=== PATIENT | female | born 1955 | race Caucasian/White ===

== ENCOUNTER → 2016-11-10 | Outpatient (REF) | payer BC ==
[~2016-11-10] MED LIST: CENTTAB47 PO; CLAR10CA3 PO; FIBECAP2 PO; FLON1SPR; HYDR12.55 PO; MIAC1SPR; OMEP40CA2 PO; ZOCO40TA PO
[2016-11-10 11:50] LABS: MEAN CORPUSCULAR HEMOGLOBIN 30.7 pg (27.0-33.0); MEAN CORPUSCULAR HGB CONC 33.3 g/dl (32.0-36.5); MEAN CORPUSCULAR VOLUME 92.3 fl (80.0-96.0); RED CELL DISTRIBUTION WIDTH 12.3 % (11.5-14.5); WHITE BLOOD COUNT 6.7 K/mm3 (4.0-10.0)
[2016-11-10 12:16] LABS: ALBUMIN 4.4 GM/DL (3.2-5.2); ALBUMIN/GLOBULIN RATIO 1.33 (1.00-1.93); ALKALINE PHOSPHATASE 82 U/L (45-117); ALT/SGPT 41 U/L (12-78); ANION GAP 8 MEQ/L (8-16); AST/SGOT 26 U/L (15-37); BILIRUBIN,TOTAL 0.7 MG/DL (0.2-1.0); BLOOD UREA NITROGEN 15 MG/DL (7-18); CALCIUM LEVEL 9.4 MG/DL (8.5-10.1); CARBON DIOXIDE LEVEL 29 MEQ/L (21-32); CHLORIDE LEVEL 102 MEQ/L (98-107); CHOLESTEROL LEVEL 181 MG/DL (<200); CREATININE FOR GFR 0.75 MG/DL (0.55-1.02); GLOMERULAR FILTRATION RATE > 60.0 (>51); GLUCOSE, FASTING 116 MG/DL (70-105); POTASSIUM SERUM 3.4 MEQ/L (3.5-5.1); SODIUM LEVEL 139 MEQ/L (136-145); TOTAL PROTEIN 7.7 GM/DL (6.4-8.2); TRIGLYCERIDES LEVEL 104 MG/DL (<150)
== END ==
LOC: M SFHCCLAY 08:24
PROVIDERS: ATTEND Nurse Practitioner Family
DX: I10 Essential (primary) hypertension (principal); E78.4 Other hyperlipidemia; E55.9 Vitamin D deficiency, unspecified

== ENCOUNTER → 2016-12-30 | Outpatient (CLI) | payer BC ==
[2016-12-30 09:25] LABS: POTASSIUM SERUM 3.5 MEQ/L (3.5-5.1)
== END ==
LOC: M LAB 07:54
PROVIDERS: ATTEND Nurse Practitioner Family
DX: I10 Essential (primary) hypertension (principal); R73.01 Impaired fasting glucose; E78.4 Other hyperlipidemia; E55.9 Vitamin D deficiency, unspecified

== ENCOUNTER → 2017-05-03 | Outpatient (REF) | payer BC ==
[~2017-05-03] MED LIST changes: -MIAC1SPR; +MIAC200S2
== END ==
LOC: M SFHCCLAY 11:26
PROVIDERS: ATTEND Nurse Practitioner Family
DX: R73.01 Impaired fasting glucose (principal); E78.4 Other hyperlipidemia; E55.9 Vitamin D deficiency, unspecified

== ENCOUNTER → 2017-07-20 | Outpatient (CLI) | payer BC ==
--- NOTE | 2017-07-20 15:19 | REPMRS ---
Patient History The patient states she has not had a clinical breast exam in over a year. Patient is postmenopausal. Family history of ovarian cancer in sister. Benign excisional biopsy of the right breast, 1978. Digital Woman Screen Mammo: July 20, 2017 - Exam #: [id number] Bilateral CC and MLO view(s) were taken. Technologist: Lisa Cintron, Technologist Prior study comparison: April 05, 2016, bilateral digital mammo screening bilat, performed at [facility]. October 29, 2014, digital woman screen mammo performed at [facility]. FINDINGS: There are scattered fibroglandular densities. There has been no change in the appearance of the mammogram from the prior studies. There is a mild amount of residual fibroglandular tissue which is fairly symmetric. There is no interval development of dominant mass, architectural distortion, or clustered microcalcification suggestive of malignancy. ASSESSMENT: BI-RADS/ACR category 1 mammogram. Negative. Recommendation Routine screening mammogram in 1 year (for women over age 40). This mammogram was interpreted with the aid of an FDA-approved computer-aided dectection system. Electronically Signed By: Willi Martin MD 07/20/17 [id number]
--- NOTE | 2017-07-24 09:32 | DEXA ---
AP SPINE L1 - L4 0.996 -1.5 -0.8 LT FEMUR TOTAL 0.924 -0.7 0.3 RT FEMUR TOTAL 0.937 -0.6 0.4 TOTAL BODY TOTAL OTHER COMMENTS: There is low bone density of the spine and hips. The increased density of the spine does represent a significant change. The decreased density of the left hip does represent a significant change. The decreased density of the right hip does not represent a significant change. The density of the spine has decreased 0.6% since the initial exam on 2005. The spine density has increased 2.6% since the most recent exam on 10/29/2014. The density of the left hip has decreased 4.0% since the initial exam on 2005. The density of the left hip has decreased 4.7% since the most recent exam on . The density of the right hip has increased 0.1% since the initial exam on 2005. The density of the right hip has decreased 0.4% since the most recent exam on . FOLLOW-UP: Recommendation for the next bone density exam: 2 years. WANDA
== END ==
LOC: M WHC 14:07
PROVIDERS: ATTEND Nurse Practitioner Family
DX: Z12.31 Encounter for screening mammogram for malignant neoplasm of breast (principal); M81.8 Other osteoporosis without current pathological fracture
CPT/HCPCS: 77080; G0202

== ENCOUNTER → 2017-08-08 | Outpatient (CLI) | payer BC ==
[2017-08-08 07:34] LABS: ESTIMATED AVERAGE GLUCOSE 131 MG/DL (60-110); HEMOGLOBIN A1c 6.2 %
[2017-08-08 07:41] LABS: CHOLESTEROL LEVEL 184 MG/DL (<200); CHOLESTEROL RISK RATIO 2.875 (<5); HDL CHOLESTEROL 64 MG/DL (>40); LDL CHOLESTEROL 101.2 MG/DL (<100); NON-HDL-C 120 MG/DL; TRIGLYCERIDES LEVEL 94 MG/DL (<150)
[2017-08-08 09:48] LABS: TOTAL 25(OH) VITAMIN D 36.5 NG/ML (30.0-100.0)
== END ==
LOC: M LAB 06:13
DX: R73.01 Impaired fasting glucose (principal); E78.4 Other hyperlipidemia; E55.9 Vitamin D deficiency, unspecified
CPT/HCPCS: 83036

== ENCOUNTER → 2017-10-24 | Outpatient (REF) | payer BC ==
[2017-10-24 11:38] LABS: HEMATOCRIT 38.4 % (36.0-47.0); HEMOGLOBIN 13.1 g/dl (12.0-16.0); MEAN CORPUSCULAR HEMOGLOBIN 30.8 pg (27.0-33.0); MEAN CORPUSCULAR HGB CONC 34.1 g/dl (32.0-36.5); MEAN CORPUSCULAR VOLUME 90.4 fl (80.0-96.0); PLATELET COUNT, AUTOMATED 311 10^3/uL (150-450); RED BLOOD COUNT 4.25 10^6/uL (4.00-5.40); RED CELL DISTRIBUTION WIDTH 12.4 % (11.5-14.5); WHITE BLOOD COUNT 9.5 10^3/uL (4.0-10.0)
[2017-10-24 11:57] LABS: ALBUMIN 3.7 GM/DL (3.2-5.2); ALBUMIN/GLOBULIN RATIO 1.23 (1.00-1.93); ALKALINE PHOSPHATASE 63 U/L (45-117); ALT/SGPT 28 U/L (12-78); ANION GAP 10 MEQ/L (8-16); AST/SGOT 18 U/L (7-37); BILIRUBIN,TOTAL 0.4 MG/DL (0.2-1.0); BLOOD UREA NITROGEN 16 MG/DL (7-18); CALCIUM LEVEL 9.2 MG/DL (8.8-10.2); CARBON DIOXIDE LEVEL 28 MEQ/L (21-32); CHLORIDE LEVEL 103 MEQ/L (98-107); CHOLESTEROL LEVEL 182 MG/DL (<200); CHOLESTEROL RISK RATIO 3.433 (<5); CREATININE FOR GFR 0.82 MG/DL (0.55-1.30); GLOMERULAR FILTRATION RATE > 60.0 (>45); GLUCOSE, FASTING 119 MG/DL (70-100); HDL CHOLESTEROL 53 MG/DL (>40); NON-HDL-C 129 MG/DL; POTASSIUM SERUM 3.4 MEQ/L (3.5-5.1); SODIUM LEVEL 141 MEQ/L (136-145); TOTAL PROTEIN 6.7 GM/DL (6.4-8.2); TRIGLYCERIDES LEVEL 170 MG/DL (<150)
[2017-10-24 12:03] LABS: TOTAL 25(OH) VITAMIN D 31.6 NG/ML (30.0-100.0)
[2017-10-24 12:44] LABS: ESTIMATED AVERAGE GLUCOSE 146 MG/DL (60-110); HEMOGLOBIN A1c 6.7 %
== END ==
LOC: M SFHCCLAY 08:22
DX: I10 Essential (primary) hypertension (principal); R73.01 Impaired fasting glucose; E78.4 Other hyperlipidemia; E55.9 Vitamin D deficiency, unspecified
CPT/HCPCS: 80053

== ENCOUNTER 2018-01-11 01:46 | Emergency (ER) | payer BC | END 2018-01-11 06:40 | disposition home or self-care (01) | LOC: M ED 01:46 | DX: L50.0 Allergic urticaria (principal); W57.XXXA Bitten or stung by nonvenomous insect and other nonvenomous arthropods, initial encounter; Y92.9 Unspecified place or not applicable; Y93.9 Activity, unspecified; Y99.9 Unspecified external cause status; I10 Essential (primary) hypertension; K21.9 Gastro-esophageal reflux disease without esophagitis; Z79.899 Other long term (current) drug therapy; Z88.0 Allergy status to penicillin | CPT/HCPCS: 99283 ==

== ENCOUNTER → 2018-02-12 | Outpatient (CLI) | payer BC ==
[2018-02-12 09:02] LABS: CHOLESTEROL LEVEL 193 MG/DL (<200); CHOLESTEROL RISK RATIO 3.015 (<5); HDL CHOLESTEROL 64 MG/DL (>40); NON-HDL-C 129 MG/DL; TRIGLYCERIDES LEVEL 120 MG/DL (<150)
[2018-02-12 09:11] LABS: CREATININE, URINE 86.3 MG/DL; MALB URINE SIEMENS 6.5 MG/L; MAU/CREAT RATIO 7.5 MCG/MG (0.0-30.0)
[2018-02-12 09:29] LABS: ESTIMATED AVERAGE GLUCOSE 140 MG/DL (60-110); HEMOGLOBIN A1c 6.5 %
[2018-02-12 11:01] LABS: TOTAL 25(OH) VITAMIN D 27.3 NG/ML (30.0-100.0)
== END ==
LOC: M LAB 07:54
DX: E11.8 Type 2 diabetes mellitus with unspecified complications (principal)
CPT/HCPCS: 83036

== ENCOUNTER → 2018-05-24 | Outpatient (CLI) | payer BC ==
[2018-05-24 08:37] LABS: CHOLESTEROL LEVEL 166 MG/DL (<200); CHOLESTEROL RISK RATIO 2.912 (<5); HDL CHOLESTEROL 57 MG/DL (>40); LDL CHOLESTEROL 91 MG/DL (<100); NON-HDL-C 109 MG/DL; TRIGLYCERIDES LEVEL 90 MG/DL (<150)
[2018-05-24 11:33] LABS: ESTIMATED AVERAGE GLUCOSE 131 MG/DL (60-110); HEMOGLOBIN A1c 6.2 %
== END ==
LOC: M LAB 07:33
DX: E11.8 Type 2 diabetes mellitus with unspecified complications (principal); E78.2 Mixed hyperlipidemia; E55.9 Vitamin D deficiency, unspecified
CPT/HCPCS: 83036

== ENCOUNTER → 2018-07-12 | Outpatient (CLI) | payer BC ==
[2018-07-12 08:42] LABS: CHOLESTEROL LEVEL 189 MG/DL (<200); CHOLESTEROL RISK RATIO 3.048 (<5); HDL CHOLESTEROL 62 MG/DL (>40); LDL CHOLESTEROL 111 MG/DL (<100); NON-HDL-C 127 MG/DL; TRIGLYCERIDES LEVEL 79 MG/DL (<150)
[2018-07-12 09:19] LABS: TOTAL 25(OH) VITAMIN D 40.2 NG/ML (30.0-100.0)
== END ==
LOC: M LAB 07:33
DX: E55.9 Vitamin D deficiency, unspecified (principal); E78.49 Other hyperlipidemia
CPT/HCPCS: 82306

== ENCOUNTER → 2018-08-29 | Outpatient (REF) | payer BC ==
[~2018-08-29] MED LIST changes: +TRIA1CR80 TOP
[2018-08-29 17:26] LABS: HEMATOCRIT 40.9 % (36.0-47.0); HEMOGLOBIN 13.4 g/dl (12.0-15.5); MEAN CORPUSCULAR HEMOGLOBIN 30.4 pg (27.0-33.0); MEAN CORPUSCULAR HGB CONC 32.8 g/dl (32.0-36.5); MEAN CORPUSCULAR VOLUME 92.7 fl (80.0-96.0); PLATELET COUNT, AUTOMATED 274 10^3/uL (150-450); RED BLOOD COUNT 4.41 10^6/uL (4.00-5.40); WHITE BLOOD COUNT 6.6 10^3/uL (4.0-10.0)
[2018-08-29 17:28] LABS: ALBUMIN 3.8 GM/DL (3.2-5.2); ALT/SGPT 23 U/L (12-78); BILIRUBIN,TOTAL 0.4 MG/DL (0.2-1.0); BLOOD UREA NITROGEN 17 MG/DL (7-18); CALCIUM LEVEL 9.3 MG/DL (8.8-10.2); CARBON DIOXIDE LEVEL 28 MEQ/L (21-32); CHLORIDE LEVEL 104 MEQ/L (98-107); CHOLESTEROL LEVEL 181 MG/DL (<200); CREATININE FOR GFR 0.66 MG/DL (0.55-1.30); GLOMERULAR FILTRATION RATE > 60.0 (>45); GLUCOSE, FASTING 108 MG/DL (70-100); HDL CHOLESTEROL 52 MG/DL (>40); LDL CHOLESTEROL 85 MG/DL (<100); NON-HDL-C 129 MG/DL; POTASSIUM SERUM 3.9 MEQ/L (3.5-5.1); SODIUM LEVEL 140 MEQ/L (136-145); TOTAL 25(OH) VITAMIN D 26.1 NG/ML (30.0-100.0); TOTAL PROTEIN 6.9 GM/DL (6.4-8.2); TRIGLYCERIDES LEVEL 219 MG/DL (<150)
[2018-08-29 17:48] LABS: HEMOGLOBIN A1c 6.9 %
[2018-08-29 17:51] LABS: CREATININE, URINE 29.3 MG/DL; MALB URINE SIEMENS < 5.0 MG/L
== END ==
LOC: M SFHCCLAY 10:38
PROVIDERS: ATTEND Nurse Practitioner Family
DX: I10 Essential (primary) hypertension (principal); E11.8 Type 2 diabetes mellitus with unspecified complications; E78.49 Other hyperlipidemia; E55.9 Vitamin D deficiency, unspecified

== ENCOUNTER → 2018-11-27 | Outpatient (CLI) | payer BC ==
[2018-11-27 08:11] LABS: HEMOGLOBIN 13.2 g/dl (12.0-15.5); MEAN CORPUSCULAR HEMOGLOBIN 29.9 pg (27.0-33.0); MEAN CORPUSCULAR VOLUME 90.7 fl (80.0-96.0); PLATELET COUNT, AUTOMATED 276 10^3/uL (150-450); RED BLOOD COUNT 4.41 10^6/uL (4.00-5.40)
[2018-11-27 08:41] LABS: CREATININE, URINE 49.5 MG/DL; MALB URINE SIEMENS < 5.0 MG/L; MAU/CREAT RATIO 10.1 MCG/MG (0.0-30.0)
[2018-11-27 08:45] LABS: ALBUMIN 4.6 GM/DL (3.2-5.2); ALT/SGPT 19 U/L (12-78); BILIRUBIN,TOTAL 0.5 MG/DL (0.2-1.0); BLOOD UREA NITROGEN 17 MG/DL (7-18); CALCIUM LEVEL 9.8 MG/DL (8.8-10.2); CARBON DIOXIDE LEVEL 29 MEQ/L (21-32); CHLORIDE LEVEL 103 MEQ/L (98-107); CHOLESTEROL LEVEL 174 MG/DL (<200); CHOLESTEROL RISK RATIO 2.949 (<5); CREATININE FOR GFR 0.74 MG/DL (0.55-1.30); GLOMERULAR FILTRATION RATE > 60.0 (>45); GLUCOSE, FASTING 124 MG/DL (70-100); HDL CHOLESTEROL 59 MG/DL (>40); LDL CHOLESTEROL 96 MG/DL (<100); NON-HDL-C 115 MG/DL; POTASSIUM SERUM 3.9 MEQ/L (3.5-5.1); SODIUM LEVEL 139 MEQ/L (136-145); TOTAL PROTEIN 7.4 GM/DL (6.4-8.2); TRIGLYCERIDES LEVEL 95 MG/DL (<150)
[2018-11-27 10:27] LABS: TOTAL 25(OH) VITAMIN D 37.3 NG/ML (30.0-100.0)
[2018-11-27 10:35] LABS: HEMOGLOBIN A1c 6.5 %
== END ==
LOC: M LAB 07:31
PROVIDERS: ATTEND Nurse Practitioner Family
DX: K21.9 Gastro-esophageal reflux disease without esophagitis (principal); I10 Essential (primary) hypertension; E11.8 Type 2 diabetes mellitus with unspecified complications; E55.9 Vitamin D deficiency, unspecified

== ENCOUNTER → 2019-02-14 | Outpatient (CLI) | payer BC ==
[2019-02-14 08:23] LABS: HEMOGLOBIN A1c 6.7 %
== END ==
LOC: M LAB 07:30
PROVIDERS: ATTEND Nurse Practitioner Family
DX: E11.8 Type 2 diabetes mellitus with unspecified complications (principal)

== ENCOUNTER 2019-04-11 18:16 | Inpatient (IN) | payer BC ==
[~2019-04-11] VITALS: Ht 147.3 cm; Wt 56.6 kg
[2019-04-11 19:46] LABS: BASO % 0.4 % (0.0-1.0); EOS # 0.3 10^3/uL (0.0-0.5); EOS % 3.5 % (0.0-3.0); HEMATOCRIT 36.8 % (36.0-47.0); HEMOGLOBIN 12.5 g/dl (12.0-15.5); LYMPH # 2.1 10^3/uL (1.5-5.0); LYMPH % 26.8 % (24.0-44.0); MEAN CORPUSCULAR HEMOGLOBIN 31.3 pg (27.0-33.0); MEAN CORPUSCULAR VOLUME 92.2 fl (80.0-96.0); MONO # 0.6 10^3/uL (0.0-0.8); MONO % 6.9 % (0.0-5.0); NEUTROPHILS # 4.9 10^3/uL (1.5-8.5); NEUTROPHILS % 62.1 % (36.0-66.0); PLATELET COUNT, AUTOMATED 290 10^3/uL (150-450); RED BLOOD COUNT 3.99 10^6/uL (4.00-5.40)
[2019-04-11] MEDS ORDERED: LOSA50TA88 PO (20:08)
[2019-04-11] MEDS ORDERED: META0.52 PO (20:09)
[2019-04-11] MEDS ORDERED: DESL5TAB11 PO (20:10)
[2019-04-11 20:17] LABS: ALBUMIN 3.9 GM/DL (3.2-5.2); ALT/SGPT 20 U/L (12-78); BILIRUBIN,DIRECT < 0.1 MG/DL (0.0-0.2); BILIRUBIN,TOTAL 0.3 MG/DL (0.2-1.0); BLOOD UREA NITROGEN 17 MG/DL (7-18); CALCIUM LEVEL 9.3 MG/DL (8.8-10.2); CARBON DIOXIDE LEVEL 29 MEQ/L (21-32); CHLORIDE LEVEL 108 MEQ/L (98-107); CREATININE FOR GFR 0.74 MG/DL (0.55-1.30); GLOMERULAR FILTRATION RATE > 60.0 (>45); GLUCOSE, FASTING 138 MG/DL (70-100); LIPASE 96 U/L (73-393); POTASSIUM SERUM 3.7 MEQ/L (3.5-5.1); SODIUM LEVEL 143 MEQ/L (136-145); TOTAL PROTEIN 6.7 GM/DL (6.4-8.2)
[2019-04-11] MEDS ORDERED: hydroCHLOROthiazide 12.5 MG CAPSULE PO SCH (21:00)
[2019-04-11] MEDS: HumaLOG INSULIN (NovoLOG) PER UNIT SC SCH (21:00)
[2019-04-11] MEDS ORDERED: LOSARTAN 50 MG TAB PO SCH (21:00)
[2019-04-11] MEDS: METAMUCIL (PSYLLIUM) PACKET PO SCH (21:00)
[2019-04-11] MEDS ORDERED: ISOVUE-370 76% 100ML VIAL (Q9967) As Ordered ONE (21:41)
[2019-04-11 21:56] LABS: BASO % 0.3 % (0.0-1.0); EOS # 0.4 10^3/uL (0.0-0.5); EOS % 4.3 % (0.0-3.0); HEMATOCRIT 33.7 % (36.0-47.0); HEMOGLOBIN 11.5 g/dl (12.0-15.5); LYMPH # 3.2 10^3/uL (1.5-5.0); LYMPH % 35.2 % (24.0-44.0); MEAN CORPUSCULAR HGB CONC 34.1 g/dl (32.0-36.5); MEAN CORPUSCULAR VOLUME 93.9 fl (80.0-96.0); MONO # 0.7 10^3/uL (0.0-0.8); MONO % 7.8 % (0.0-5.0); NEUTROPHILS # 4.7 10^3/uL (1.5-8.5); NEUTROPHILS % 52.1 % (36.0-66.0); PLATELET COUNT, AUTOMATED 278 10^3/uL (150-450); RED BLOOD COUNT 3.59 10^6/uL (4.00-5.40); WHITE BLOOD COUNT 9.1 10^3/uL (4.0-10.0)
--- NOTE | 2019-04-11 22:38 | REPVR ---
EXAM: CT Abdomen and Pelvis With Contrast EXAM DATE/TIME: 04/11/2019 10:12 PM CLINICAL HISTORY: 64 years old, female; Abdominal pain; Generalized; Additional info: Abd pain, gi bleed TECHNIQUE: Imaging protocol: Computed tomography of the abdomen and pelvis with intravenous contrast. Radiation optimization: All CT scans at this facility use at least one of these dose optimization techniques: automated exposure control; mA and/or kV adjustment per patient size (includes targeted exams where dose is matched to clinical indication); or iterative reconstruction. Contrast material: ISOVUE 370; Contrast volume: 100 ml; Contrast route: IV; COMPARISON: No relevant prior studies available. FINDINGS: Lungs: Calcified granuloma left lung base. Mediastinum: A small hiatal hernia is present. Liver: There is a diffuse decrease in hepatic parenchymal density, consistent with fatty infiltration. Subcentimeter cyst left lobe of the liver. Gallbladder and bile ducts: Normal. No calcified stones. No ductal dilation. Pancreas: Normal. No ductal dilation. Spleen: Normal. No splenomegaly. Adrenals: Normal. No mass. Kidneys and ureters: Solid enhancing mass in the upper pole of the left kidney measures 4.9 x 5.1 x 4.2 cm consistent with a renal cell carcinoma. Stomach and bowel: There is increased feces throughout the colon consistent with constipation. Appendix: No evidence of appendicitis. Intraperitoneal space: Unremarkable. No free air. No significant fluid collection. Vasculature: No invasion of the renal vein or inferior vena cava. The aorta demonstrates mild atherosclerotic calcification. Lymph nodes: Unremarkable. No enlarged lymph nodes. Bladder: Unremarkable as visualized. Reproductive: There has been a hysterectomy. Bones/joints: The spine demonstrates mild degenerative changes. Soft tissues: Unremarkable. IMPRESSION: 1. There is a diffuse decrease in hepatic parenchymal density, consistent with fatty infiltration. 2. Small hiatal hernia. 3. Solid enhancing mass in the upper pole of the left kidney measures 4.9 x 5.1 x 4.2 cm consistent with a renal cell carcinoma. 4. There has been a hysterectomy. 5. There is increased feces throughout the colon consistent with constipation. COMMENT: Consistent with the [employer]'s Incidental Findings Committee Report (J Am Mani Radiol 2010): Unless the patient's specific circumstances suggest otherwise, any liver lesion 0.5 cm or less, any cystic kidney lesion less than 1.0 cm, and/or any adrenal lesion 1.0 cm or less not otherwise characterized in this report as possessing suspicious or indeterminate imaging features is/are highly likely to be benign and do not require follow-up imaging or biopsy. Electronically signed by: Toby Roth On 04/11/2019 22:38:29 PM
[2019-04-11 22:54] LABS: INR 0.99; PROTHROMBIN TIME 12.8 SECONDS (11.8-14.0)
[2019-04-11 22:55] LABS: PARTIAL THROMBOPLASTIN TIME 31.6 SECONDS (25.0-38.4)
--- NOTE | 2019-04-11 23:35 | HPEPDOC ---
[facility] Medical History & Physical Date of Admission Apr 11, 2019 Date of Service: Apr 11, 2019 Primary Care Physician: Renae Majano Attending Physician: LAMONTE RAMIREZ MD History and Physical PRIMARY CARE PROVIDER: Renae Majano HAZMAT CD[employer] DRIVER ATTENDING: Dr. Lamonte Ramirez CHIEF COMPLAINT: blood in stool HISTORY OF PRESENT ILLNESS: Patient is a 64 year old female presenting with chief complaint of blood in her stool. She states that beginning the evening of 04/11 she had been feeling weak. She went to the bathroom and had 4-5 bowel movements with cramping abdominal pain with both bright red blood in her stool as well as clots of blood in her stool. During her last bowel movement she bec audra very lightheaded and dizzy and apparently syncopized coming to after a matter of seconds. Workup in the emergency department initially did not reveal any anemia however a repeat CBC done 2 hours later showed a drop in hemoglobin of 1 unit. Upper endoscopy and colonoscopy done by Dr. Melissa in July 2015 was normal. Review of the medical records shows the colonoscopy found perianal skin tags, one diminutive polyp in the sigmoid colon that was resected and found to be consistent with a hyperplastic polyp, mild diverticulosis, and small internal hemorrhoids. While in the emergency department patient also had a CT of her abdomen and pelvis done which did not reveal any obvious source of bleed, but did incidentally find a solid enhancing mass in the upper pole of the left kidney measuring 4.98 x 5.1 x 4.2 cm consistent with a renal cell carcinoma. The patient was informed of the results of these findings. PAST MEDICAL HISTORY: Type 2 diabetes Hypertension Mixed hyperlipidemia GERD Osteoporosis Reactive depression Irritable bowel syndrome PAST SURGICAL HISTORY: Hysterectomy with bilateral salpingo-oophorectomy for uterine fibroids and menorrhagia (2003) 3 Excision of right breast cyst SOCIAL HISTORY: Denies smoking, no alcohol use, no illicit drug use. Lives at home with her . FAMILY HISTORY: Fatherdeceased from COPD Mother-alive One sisterhistory of stroke and later cancer () ALLERGIES: Please see below. REVIEW OF SYSTEMS: GENERAL: Denies fevers, chills, recent unexpected weight change, night sweats, hemoptysis HEENT: Denies headache, dizziness, vision changes, hearing loss, sore throat CARDIOVASCULAR: Denies chest pain, palpitations, orthopnea RESPIRATORY: Denies shortness of breath, wheezing, cough GASTROINTESTINAL: denies nausea, vomiting, abdominal pain, constipation, diarrhea, admits to blood in her stool as per HPI GENITOURINARY: Denies dysuria,urinary urgency, hematuria. MUSCULOSKELETAL: Denies muscle/joint pain, weakness, stiffness NEUROLOGICAL: Denies any numbness/tingling, focal weakness. Admits to single syncopal episode as per HPI HOME MEDICATIONS: Please see below. PHYSICAL EXAMINATION: Vitals: (see below) General: Sad appearing female who appears stated age, no acute distress, laying comfortably in bed. HEENT: Normocephalic, atraumatic. EOMI. No scleral icterus. Moist mucous membranes. No pharyngeal erythema or uvular deviation. Neck: No JVD, lymphadenopathy, or thyromegaly. Cardiac: RRR, Normal S1 and S2, No murmurs, gallops, rubs. Pulm: Clear to auscultation b/l. Symmetric thorax. No wheezing, crackles, rhonchi Abd: Bowel Sounds present. Abdomen is soft, non-tender, non-distended. No g uarding, rebound tenderness, or rigidity. No hepatosplenomegaly. No masses or eccymosis. Ext: No edema or cyanosis Neuro: Alert and oriented, no focal neuro deficits. LABORATORY DATA: See below. IMAGIN04/11/19 CT abdomen/pelvis with IV contrast only: IMPRESSION: 1. There is a diffuse decrease in hepatic parenchymal density, consistent with fatty infiltration. 2. Small hiatal hernia. 3. Solid enhancing mass in the upper pole of the left kidney measures 4.9 x 5.1 x 4.2 cm consistent with a renal cell carcinoma. 4. There has been a hysterectomy. 5. There is increased feces throughout the colon consistent with constipation. MICROBIOLOGY: Please see below. ASSESSMENT/PLAN: #. Symptomatic anemia from Lower GI bleed -Transfusing 2 units of blood, trending CBC every 6 hours. -Dr. Esposito has been made aware of the patient and will see them in the morning. Will run D5 normal saline as patient will be made NPO in case she has an endoscopy on 04/12. -Iron panel ordered as part of anemia work up #. Left renal mass - Dr. Briceno with urology has been consulted for consideration of possible partial nephrectomy during her inpatient stay. We will make him aware in the morning as this is non-emergent. #. Syncopal episode -Telemetry ordered, orthostatics ordered, patient on maintenance fluids. #. Type 2 diabetes -Patient not on home medications, will be placed on sliding scale, consistent carb diet once not nothing by mouth #. Hypertension -Continue home losartan, hydrochlorothiazide #. Hyperlipidemia -Continue statin #. GERD -Continue home omeprazole #. IBS -Continue home Metamucil -DVT prophy: Teds, holding anticoagulation secondary to GI bleed Vital Signs Vital Signs Date Time Temp Pulse Resp B/P (MAP) Pulse Ox O2 Delivery O2 Flow Rate FiO2 04/11/19 23:26 90 18 145/92 (109) 96 Room Air 04/11/19 18:16 98.3 Laboratory Data Labs 24H Laboratory Tests 2 04/11/19 19:36: Immature Granulocyte % (Auto) 0.3, White Blood Count 8.0, Red Blood Count 3.99L, Hemoglobin 12.5, Hematocrit 36.8, Mean Corpuscular Volume 92.2, Mean Corpuscular Hemoglobin 31.3, Mean Corpuscular Hemoglobin Concent 34.0, Red Cell Distribution Width 12.4, Platelet Count 290, Neutrophils (%) (Auto) 62.1, Lymphocytes (%) (Auto) 26.8, Monocytes (%) (Auto) 6.9H, Eosinophils (%) (Auto) 3.5H, Basophils (%) (Auto) 0.4, Neutrophils # (Auto) 4.9, Lymphocytes # (Auto) 2.1, Monocytes # (Auto) 0.6, Eosinophils # (Auto) 0.3, Basophils # (Auto) 0.0, Nucleated Red Blood Cells % (auto) 0.0, Prothrombin Time 12.8, Prothromb Time International Ratio 0.99, Activated Partial Thromboplast Time 31.6, Anion Gap 6L, Glomerular Filtration Rate > 60.0, Calcium Level 9.3, Aspartate Amino Transf (AST/SGOT) 12, Alanine Aminotransferase (ALT/SGPT) 20, Alkaline Phosphatase 70, Total Bilirubin 0.3, Direct Bilirubin < 0.1, Total Protein 6.7, Albumin 3.9, Albumin/Globulin Ratio 1.39, Lipase 96 04/11/19 19:47: Urine Color YELLOW, Urine Appearance CLEAR, Urine pH 5.0, Urine Specific [place] 1.031, Urine Protein NEGATIVE, Urine Glucose (UA) NEGATIVE, Urine Ketones TRAC EH, Urine Blood NEGATIVE, Urine Nitrite NEGATIVE, Urine Bilirubin NEGATIVE, Urine Urobilinogen 0.2, Urine Leukocyte Esterase NEGATIVE, Urine WBC (Auto) 1, Urine RBC (Auto) 2, Urine Hyaline Casts (Auto) 0, Urine Bacteria (Auto) NEGATIVE, Urine Squamous Epithelial Cells 2, Urine Amorphous Sediment SMALLH, Urine Mucus (Auto) MODERATE, Urine Sperm (Auto) 04/11/19 21:48: Immature Granulocyte % (Auto) 0.3, White Blood Count 9.1, Red Blood Count 3.59L, Hemoglobin 11.5L, Hematocrit 33.7L, Mean Corpuscular Volume 93.9, Mean Corpuscular Hemoglobin 32.0, Mean Corpuscular Hemoglobin Concent 34.1, Red Cell Distribution Width 12.5, Platelet Count 278, Neutrophils (%) (Auto) 52.1, Lymp hocytes (%) (Auto) 35.2, Monocytes (%) (Auto) 7.8H, Eosinophils (%) (Auto) 4.3H, Basophils (%) (Auto) 0.3, Neutrophils # (Auto) 4.7, Lymphocytes # (Auto) 3.2, Monocytes # (Auto) 0.7, Eosinophils # (Auto) 0.4, Basophils # (Auto) 0.0, Nucleated Red Blood Cells % (auto) 0.0 CBC/BMP Laboratory Tests 04/11/19 19:36 Red Blood Count 3.99 L, Mean Corpuscular Volume 92.2, Mean Corpuscular Hemoglobin 31.3, Mean Corpuscular Hemoglobin Concent 34.0, Red Cell Distribution Width 12.4, Neutrophils (%) (Auto) 62.1, Lymphocytes (%) (Auto) 26.8, Monocytes (%) (Auto) 6.9 H, Eosinophils (%) (Auto) 3.5 H, Basophils (%) (Auto) 0.4, Neutrophils # (Auto) 4.9, Lymphocytes # (Auto) 2.1, Monocytes # (Auto) 0.6, Eosinophils # (Auto) 0.3, Basophils # (Auto) 0.0 04/11/19 21:48 Red Blood Count 3.59 L, Mean Corpuscular Volume 93.9, Mean Corpuscular Hemoglobin 32.0, Mean Corpuscular Hemoglobin Concent 34.1, Red Cell Distribution Width 12.5, Neutrophils (%) (Auto) 52.1, Lymphocytes (%) (Auto) 35.2, Monocytes (%) (Auto) 7.8 H, Eosinophils (%) (Auto) 4.3 H, Basophils (%) (Auto) 0.3, Neutrophils # (Auto) 4.7, Lymphocytes # (Auto) 3.2, Monocytes # (Auto) 0.7, Eosinophils # (Auto) 0.4, Basophils # (Auto) 0.0 Microbiology Microbiology 04/11/19 Gastrointestinal Tract Panel (PCR) - Final, Complete Home Medications Scheduled Desloratadine (Desloratadine) 5 Mg Tab.rapdis, 5 MG PO QHS Losartan Potassium (Losartan Potassium) 50 Mg Tablet, 50 MG PO QHS Multivitamin/Iron/Folic Acid (Centrum Adults Tablet) 1 Each Tablet, 1 TAB PO QHS Omeprazole (Omeprazole) 40 Mg Cap, 40 MG PO QHS Psyllium Husk (Metamucil) 660 Gm Powder, 1 PKT PO QHS Simvastatin (Zocor) 40 Mg Tab, 40 MG PO QHS Allergies Coded Allergies: Penicillins (Verified Allergy, Intermediate, RASH, 04/11/19) A-FIB/CHADSVASC A-FIB History Current/History of A-Fib/PAF?: No GME ATTESTATION GME ATTESTATION My faculty preceptor for this patient encounter was physically present during the encounter and was fully available. All aspects of the patient interview, examination, medical decision making process, and medical care plan development were reviewed and approved by the faculty preceptor. The faculty preceptor is aware and concurs with the plan as stated in the body of this note and will attest to such by his/her cosignature. ATTENDING NOTE I personally examined this patient at 11:40PM and discussed the case with . is a 64 yr old F w a PMH of HTN who came in for evaluation of blood in her stools; her only other c/o is of weakness which she attributes to working 2 jobs. Per d/w the ED Attending she had a syncopal episode in the ED. Her physical exam is generally unremarkable. She will be admitted for management of Acute Blood Loss Anemia 2/2 LGIB & Newly Diagnosed Right Sided Renal Cell Rest per 's note. LE RUIZ DO Apr 11, 2019 23:35 LAMONTE RAMIREZ MD Apr 11, 2019 23:54
[2019-04-12] VITALS (9 sets, daily range): BP systolic 106–138; BP diastolic 57–83
[2019-04-12] MEDS ORDERED: GLUCAGON FOR INJ 1 MG VIAL (J1610) SC PRN (00:15)
[2019-04-12] MEDS ORDERED: DEXTROSE 50% 50 ML SYRINGE IV PRN (00:15)
[2019-04-12] MEDS ORDERED: GLUCOSE 4 GM CHEW TABLET PO PRN (00:15)
[2019-04-12] MEDS ORDERED: META58.68 PO (00:18)
[2019-04-12] MEDS ORDERED: HYDR12CA PO (00:18)
[2019-04-12] MEDS ORDERED: MULT1TAB50 PO (00:18)
[2019-04-12 00:31] LABS: HEMATOCRIT 31.3 % (36.0-47.0); HEMOGLOBIN 10.5 g/dl (12.0-15.5); MEAN CORPUSCULAR HEMOGLOBIN 30.6 pg (27.0-33.0); MEAN CORPUSCULAR HGB CONC 33.5 g/dl (32.0-36.5); MEAN CORPUSCULAR VOLUME 91.3 fl (80.0-96.0); PLATELET COUNT, AUTOMATED 259 10^3/uL (150-450); RED BLOOD COUNT 3.43 10^6/uL (4.00-5.40); WHITE BLOOD COUNT 14.6 10^3/uL (4.0-10.0)
[2019-04-12 01:01] LABS: FERRITIN 247 NG/ML (8-252); IRON (FE) 44 UG/DL (50-170); PERCENT SATURATION 14.9 % (13.2-45.0); TOTAL IRON BINDING CAPACITY 296 UG/DL (250-450)
[2019-04-12] MEDS: OMEPRAZOLE 20 MG CAP PO SCH ×2 (02:38→20:40)
[2019-04-12] MEDS: SIMVASTATIN 40 MG TAB PO SCH ×2 (02:42→20:40)
[2019-04-12] MEDS: D5W/0.9% SODIUM CHLORIDE 1,000 ML IV SCH ×2 (02:43→13:22)
[2019-04-12 05:21] LABS: BASO % 0.2 % (0.0-1.0); EOS # 0.1 10^3/uL (0.0-0.5); EOS % 0.8 % (0.0-3.0); HEMATOCRIT 34.2 % (36.0-47.0); HEMOGLOBIN 11.6 g/dl (12.0-15.5); LYMPH # 1.8 10^3/uL (1.5-5.0); LYMPH % 20.2 % (24.0-44.0); MEAN CORPUSCULAR HEMOGLOBIN 31.4 pg (27.0-33.0); MEAN CORPUSCULAR HGB CONC 33.9 g/dl (32.0-36.5); MEAN CORPUSCULAR VOLUME 92.7 fl (80.0-96.0); MONO # 0.5 10^3/uL (0.0-0.8); MONO % 5.7 % (0.0-5.0); NEUTROPHILS # 6.5 10^3/uL (1.5-8.5); NEUTROPHILS % 72.9 % (36.0-66.0); PLATELET COUNT, AUTOMATED 228 10^3/uL (150-450); RED BLOOD COUNT 3.69 10^6/uL (4.00-5.40); WHITE BLOOD COUNT 8.9 10^3/uL (4.0-10.0)
[2019-04-12] MEDS: HumaLOG INSULIN (NovoLOG) PER UNIT SC SCH ×4 (07:30→20:32)
--- NOTE | 2019-04-12 07:44 | CR.PDOC ---
General Date of Consultation: Apr 12, 2019 Consultation REASON FOR CONSULTATION/CHIEF COMPLAINT: Left renal mass. HISTORY OF PRESENT ILLNESS: 64-year-old female who was admitted yesterday for a lower GI bleed and acute blood loss. Patient has required transfusion of 2 units of packed RBCs. Patient underwent a CT scan which was reviewed on today's visit. A 5 cm incidental left renal mass was present in the left upper pole consistent with a renal cell carcinoma. Patient denies any urinary symptoms. She denies hematuria. She denies flank pain. She denies weight loss or bony pain. ALLERGIES: Please see below. HOME MEDICATIONS: Please see below. PAST MEDICAL HISTORY: 1. Diabetes mellitus. 2. Hypertension. 3. GERD 4. IBS PAST SURGICAL HISTORY: 1. Total abdominal hysterectomy and bilateral salpingo-oophorectomy 2. 3 3. Breast biopsy REVIEW OF SYSTEMS: 10 point review of systems was reviewed with the patient and the history and physical and are noncontributory PHYSICAL EXAMINATION: VITAL SIGNS: Please see below. GENERAL APPEARANCE: Awake and alert lying comfortably in bed. HEENT: Negative. RESPIRATORY: No respiratory distress. CARDIOVASCULAR: No peripheral edema. ABDOMEN: Soft nontender with no palpable masses, no CVA tenderness. EXTREMITIES: Full range of motion. NEUROLOGICAL: No focal deficits. LABORATORY DATA: Please see below. ASSESSMENT/PLAN: 1. Patient was found to have a incidental left renal mass which is consistent with a renal cell carcinoma. These findings were discussed with the patient and her . I recommend obtaining a chest x-ray and bone scan to rule out metastatic disease. If negative patient will be a candidate for either a left nephrectomy versus a left partial nephrectomy. Surgery does not need to be preformed on this hospital admission and will be scheduled as an elective procedure following workup of her lower GI bleed. Please schedule an outpatient office visit with Dr. Alvarado following discharge. Vital Signs/I&O Vital Signs Date Time Temp Pulse Resp B/P (MAP) Pulse Ox O2 Delivery O2 Flow Rate FiO2 04/12/19 04:00 97.4 73 18 125/58 (80) 97 04/12/19 00:51 Room Air I&O- Last 24 Hours up to 6 AM 04/12/19 06:00 Intake Total 0 ml Output Total 475 ml Balance -475 ml Laboratory Data Labs 24H Laboratory Tests 2 04/11/19 19:36: Immature Granulocyte % (Auto) 0.3, White Blood Count 8.0, Red Blood Count 3.99L, Hemoglobin 12.5, Hematocrit 36.8, Mean Corpuscular Volume 92.2, Mean Corpuscular Hemoglobin 31.3, Mean Corpuscular Hemoglobin Concent 34.0, Red Cell Distribution Width 12.4, Platelet Count 290, Neutrophils (%) (Auto) 62.1, Lymphocytes (%) (Auto) 26.8, Monocytes (%) (Auto) 6.9H, Eosinophils (%) (Auto) 3.5H, Basophils (%) (Auto) 0.4, Neutrophils # (Auto) 4.9, Lymphocytes # (Auto) 2.1, Monocytes # (Auto) 0.6, Eosinophils # (Auto) 0.3, Basophils # (Auto) 0.0, Nucleated Red Blood Cells % (auto) 0.0, Prothrombin Time 12.8, Prothromb Time International Ratio 0.99, Activated Partial Thromboplast Time 31.6, Anion Gap 6L, Glomerular Filtration Rate > 60.0, Calcium Level 9.3, Iron Level 44L, Total Iron Binding Capacity 296, Transferrin % Saturation 14.9, Ferritin 247, Aspartate Amino Transf (AST/SGOT) 12, Alanine Aminotransferase (ALT/SGPT) 20, Alkaline Phosphatase 70, Total Bilirubin 0.3, Direct Bilirubin < 0.1, Total Protein 6.7, Albumin 3.9, Albumin/Globulin Ratio 1.39, Lipase 96 04/11/19 19:47: Urine Color YELLOW, Urine Appearance CLEAR, Urine pH 5.0, Urine Specific [place] 1.031, Urine Protein NEGATIVE, Urine Glucose (UA) NEGATIVE, Urine Ketones TRACEH, Urine Blood NEGATIVE, Urine Nitrite NEGATIVE, Urine Bilirubin NEGATIVE, Urine Urobilinogen 0.2, Urine Leukocyte Esterase NEGATIVE, Urine WBC (Auto) 1, Urine RBC (Auto) 2, Urine Hyaline Casts (Auto) 0, Urine Bacteria (Auto) NEGATIVE, Urine Squamous Epithelial Cells 2, Urine Amorphous Sediment SMALLH, Urine Mucus (Auto) MODERATE, Urine Sperm (Auto) 04/11/19 21:48: Immature Granulocyte % (Auto) 0.3, White Blood Count 9.1, Red Blood Count 3.59L, Hemoglobin 11.5L, Hematocrit 33.7L, Mean Corpuscular Volume 93.9, Mean Corpuscular Hemoglobin 32.0, Mean Corpuscular Hemoglobin Concent 34.1, Red Cell Distribution Width 12.5, Platelet Count 278, Neutrophils (%) (Auto) 52.1, Lymphocytes (%) (Auto) 35.2, Monocytes (%) (Auto) 7.8H, Eosinophils (%) (Auto) 4.3H, Basophils (%) (Auto) 0.3, Neutrophils # (Auto) 4.7, Lymphocytes # (Auto) 3.2, Monocytes # (Auto) 0.7, Eosinophils # (Auto) 0.4, Basophils # (Auto) 0.0, Nucleated Red Blood Cells % (auto) 0.0 04/12/19 00:17: Nucleated Red Blood Cells % (auto) 0.0, Reticulocyte # (auto) 69.8, Percent Reticulocyte Count 2.0H, Reticulocyte Hemoglobin Equivalent 35.6 04/12/19 00:22: 04/12/19 01:46: Bedside Glucose (Misc Panel) 155H 04/12/19 04:59: Immature Granulocyte % (Auto) 0.2, White Blood Count 8.9, Red Blood Count 3.69L, Hemoglobin 11.6L, Hematocrit 34.2L, Mean Corpuscular Volume 92.7, Mean Corpuscular Hemoglobin 31.4, Mean Corpuscular Hemoglobin Concent 33.9, Red Cell Distribution Width 13.1, Platelet Count 228, Neutrophils (%) (Auto) 72.9H, Lymphocytes (%) (Auto) 20.2L, Monocytes (%) (Auto) 5.7H, Eosinophils (%) (Auto) 0.8, Basophils (%) (Auto) 0.2, Neutrophils # (Auto) 6.5, Lymphocytes # (Auto) 1.8, Monocytes # (Auto) 0.5, Eosinophils # (Auto) 0.1, Basophils # (Auto) 0.0, Nucleated Red Blood Cells % (auto) 0.0 CBC/BMP Laboratory Tests 04/11/19 19:36 Red Blood Count 3.99 L, Mean Corpuscular Volume 92.2, Mean Corpuscular Hemoglobin 31.3, Mean Corpuscular Hemoglobin Concent 34.0, Red Cell Distribution Width 12.4, Neutrophils (%) (Auto) 62.1, Lymphocytes (%) (Auto) 26.8, Monocytes (%) (Auto) 6.9 H, Eosinophils (%) (Auto) 3.5 H, Basophils (%) (Auto) 0.4, Neutrophils # (Auto) 4.9, Lymphocytes # (Auto) 2.1, Monocytes # (Auto) 0.6, Eosinophils # (Auto) 0.3, Basophils # (Auto) 0.0 04/11/19 21:48 Red Blood Count 3.59 L, Mean Corpuscular Volume 93.9, Mean Corpuscular Hemoglobin 32.0, Mean Corpuscular Hemoglobin Concent 34.1, Red Cell Distribution Width 12.5, Neutrophils (%) (Auto) 52.1, Lymphocytes (%) (Auto) 35.2, Monocytes (%) (Auto) 7.8 H, Eosinophils (%) (Auto) 4.3 H, Basophils (%) (Auto) 0.3, Neutrophils # (Auto) 4.7, Lymphocytes # (Auto) 3.2, Monocytes # (Auto) 0.7, Eosinophils # (Auto) 0.4, Basophils # (Auto) 0.0 04/12/19 00:17 Red Blood Count 3.43 L, Mean Corpuscular Volume 91.3, Mean Corpuscular Hemoglobin 30.6, Mean Corpuscular Hemoglobin Concent 33.5, Red Cell Distribution Width 12.6 04/12/19 04:59 Red Blood Count 3.69 L, Mean Corpuscular Volume 92.7, Mean Corpuscular Hemoglobin 31.4, Mean Corpuscular Hemoglobin Concent 33.9, Red Cell Distribution Width 13.1, Neutrophils (%) (Auto) 72.9 H, Lymphocytes (%) (Auto) 20.2 L, Monocytes (%) (Auto) 5.7 H, Eosinophils (%) (Auto) 0.8, Basophils (%) (Auto) 0.2, Neutrophils # (Auto) 6.5, Lymphocytes # (Auto) 1.8, Monocytes # (Auto) 0.5, Eosinophils # (Auto) 0.1, Basophils # (Auto) 0.0 Microbiology Microbiology 04/11/19 Gastrointestinal Tract Panel (PCR) - Final, Complete Allergies Coded Allergies: Penicillins (Verified Allergy, Intermediate, RASH, 04/11/19) Home Medications Scheduled Desloratadine (Desloratadine) 5 Mg Tab.rapdis, 5 MG PO QHS, (Reported) Hydrochlorothiazide (Hydrochlorothiazide) 12.5 Mg Capsule, 12.5 MG PO QHS, (Reported) Losartan Potassium (Losartan Potassium) 50 Mg Tablet, 50 MG PO QHS, (Reported) Multivitamin/Iron/Folic Acid (Centrum Adults Tablet) 1 Each Tablet, 1 TAB PO QHS, (Reported) Omeprazole (Omeprazole) 40 Mg Cap, 40 MG PO QHS, (Reported) Psyllium Husk (Metamucil) 660 Gm Powder, 1 PKT PO QHS, (Reported) Simvastatin (Zocor) 40 Mg Tab, 40 MG PO QHS, (Reported) Grabiel Briceno MD Apr 12, 2019 07:44
--- NOTE | 2019-04-12 09:57 | IPNPDOC ---
Subjective Date Seen The patient was seen on 04/12/19. Subjective Chief Complaint/HPI Pt with family at bedside. She states that she is really feeling pretty welll. She no longer has any abd pain, she states that intermittent will feels some bubbling in her belly. She states that her last bloody stools were in the ED yesterday. General: Denies: Fatigue Constitutional: Denies: Chills, Fever ENT: Denies: Head Aches Pulmonary: Denies: Dyspnea, Cough Cardiovascular: Denies: Chest Pain, Palpitations Gastrointestinal: Denies: Nausea, Vomiting, Diarrhea Neurological: Denies: Weakness Psych: Reports: Mood Normal Objective Physical Examination General Exam: Positive: Alert, Cooperative, No Acute Distress ENT Exam: Positive: Mucous membr. moist/pink Neck Exam: Positive: Supple Chest Exam: Positive: Clear to auscultation, Normal air movement Heart Exam: Positive: Rate Normal, Normal S1, Normal S2 Abdomen Exam: Positive: Normal bowel sounds, Soft; Negative: Tenderness Extremity Exam: Negative: Edema Neuro Exam: Positive: Normal Speech Psych Exam: Positive: Mental status NL, Mood NL Assessment /Plan Problems (1) Lower GI bleed Status: Acute Response to Treatment: Stable Problem Specific Plan: Monitor Clinically Problem Text: favor tic bleed Pt has received 2 units pRBCs although her Hgb never dropped below 10.5. This morning she is 11.6, will cont to monitor. She reports no additional bloody stools since admission, although she reports she has mtp in the ED. She is NPO except for sips, IVF running. GS consulted from ED. 07/2015 EGD/colon-2 mm hyperplastic polyp-Reindl No further syncopal symptoms, no head CT done in ED. Tele has been unremarkable. (2) Syncope and collapse Status: Acute Response to Treatment: Stable Problem Text: See above. (3) Acute blood loss anemia Status: Acute Response to Treatment: Stable Problem Text: See above. (4) Renal mass, left Status: Acute Response to Treatment: Stable Problem Specific Plan: Monitor Clinically Problem Text: Pt has been seen by Dr Briceno, recommends outpt mgmt. Pt and family aware. (5) DM2 (diabetes mellitus, type 2) Status: Chronic Response to Treatment: Stable Problem Text: SSI/FSBS. Plan/VTE VTE Prophylaxis Ordered?: No VTE Exclusion Pharmacological: Active Bleeding VS, I&O, 24H, Fishbone Vital Signs/I&O Vital Signs Date Time Temp Pulse Resp B/P (MAP) Pulse Ox O2 Delivery O2 Flow Rate FiO2 04/12/19 08:00 98.9 76 18 128/83 (98) 96 04/12/19 00:51 Room Air I&O- Last 24 Hours up to 6 AM 04/12/19 06:00 Intake Total 762 ml Output Total 995 ml Balance -233 ml Laboratory Data 24H LABS Laboratory Tests 2 04/11/19 19:36: Immature Granulocyte % (Auto) 0.3, White Blood Count 8.0, Red Blood Count 3.99L, Hemoglobin 12.5, Hematocrit 36.8, Mean Corpuscular Volume 92.2, Mean Corpuscular Hemoglobin 31.3, Mean Corpuscular Hemoglobin Concent 34.0, Red Cell Distribution Width 12.4, Platelet Count 290, Neutrophils (%) (Auto) 62.1, Lymphocytes (%) (Auto) 26.8, Monocytes (%) (Auto) 6.9H, Eosinophils (%) (Auto) 3.5H, Basophils (%) (Auto) 0.4, Neutrophils # (Auto) 4.9, Lymphocytes # (Auto) 2.1, Monocytes # (Auto) 0.6, Eosinophils # (Auto) 0.3, Basophils # (Auto) 0.0, Nucleated Red Blood Cells % (auto) 0.0, Prothrombin Time 12.8, Prothromb Time International Ratio 0.99, Activated Partial Thromboplast Time 31.6, Anion Gap 6L, Glomerular Filtration Rate > 60.0, Calcium Level 9.3, Iron Level 44L, Total Iron Binding Capacity 296, Transferrin % Saturation 14.9, Ferritin 247, Aspartate Amino Transf (AST/SGOT) 12, Alanine Aminotransferase (ALT/SGPT) 20, Alkaline Phosphatase 70, Total Bilirubin 0.3, Direct Bilirubin < 0.1, Total Protein 6.7, Albumin 3.9, Albumin/Globulin Ratio 1.39, Lipase 96 04/11/19 19:47: Urine Color YELLOW, Urine Appearance CLEAR, Urine pH 5.0, Urine Specific [place] 1.031, Urine Protein NEGATIVE, Urine Glucose (UA) NEGATIVE, Urine Ketones TRACEH, Urine Blood NEGATIVE, Urine Nitrite NEGATIVE, Urine Bilirubin NEGATIVE, Urine Urobilinogen 0.2, Urine Leukocyte Esterase NEGATIVE, Urine WBC (Auto) 1, Urine RBC (Auto) 2, Urine Hyaline Casts (Auto) 0, Urine Bacteria (Auto) NEGATIVE, Urine Squamous Epithelial Cells 2, Urine Amorphous Sediment SMALLH, Urine Mucus (Auto) MODERATE, Urine Sperm (Auto) 04/11/19 21:48: Immature Granulocyte % (Auto) 0.3, White Blood Count 9.1, Red Blood Count 3.59L, Hemoglobin 11.5L, Hematocrit 33.7L, Mean Corpuscular Volume 93.9, Mean Corpuscular Hemoglobin 32.0, Mean Corpuscular Hemoglobin Concent 34.1, Red Cell Distribution Width 12.5, Platelet Count 278, Neutrophils (%) (Auto) 52.1, Lymphocytes (%) (Auto) 35.2, Monocytes (%) (Auto) 7.8H, Eosinophils (%) (Auto) 4.3H, Basophils (%) (Auto) 0.3, Neutrophils # (Auto) 4.7, Lymphocytes # (Auto) 3.2, Monocytes # (Auto) 0.7, Eosinophils # (Auto) 0.4, Basophils # (Auto) 0.0, Nucleated Red Blood Cells % (auto) 0.0 04/12/19 00:17: Nucleated Red Blood Cells % (auto) 0.0, Reticulocyte # (auto) 69.8, Percent Reticulocyte Count 2.0H, Reticulocyte Hemoglobin Equivalent 35.6 04/12/19 00:22: 04/12/19 01:46: Bedside Glucose (Misc Panel) 155H 04/12/19 04:59: Immature Granulocyte % (Auto) 0.2, White Blood Count 8.9, Red Blood Count 3.69L, Hemoglobin 11.6L, Hematocrit 34.2L, Mean Corpuscular Volume 92.7, Mean Corpuscular Hemoglobin 31.4, Mean Corpuscular Hemoglobin Concent 33.9, Red Cell Distribution Width 13.1, Platelet Count 228, Neutrophils (%) (Auto) 72.9H, Lymphocytes (%) (Auto) 20.2L, Monocytes (%) (Auto) 5.7H, Eosinophils (%) (Auto) 0.8, Basophils (%) (Auto) 0.2, Neutrophils # (Auto) 6.5, Lymphocytes # (Auto) 1.8, Monocytes # (Auto) 0.5, Eosinophils # (Auto) 0.1, Basophils # (Auto) 0.0, Nucleated Red Blood Cells % (auto) 0.0 04/12/19 08:01: Bedside Glucose (Misc Panel) 132H CBC/BMP Laboratory Tests 04/11/19 19:36 Red Blood Count 3.99 L, Mean Corpuscular Volume 92.2, Mean Corpuscular Hemoglobin 31.3, Mean Corpuscular Hemoglobin Concent 34.0, Red Cell Distribution Width 12.4, Neutrophils (%) (Auto) 62.1, Lymphocytes (%) (Auto) 26.8, Monocytes (%) (Auto) 6.9 H, Eosinophils (%) (Auto) 3.5 H, Basophils (%) (Auto) 0.4, Neutrophils # (Auto) 4.9, Lymphocytes # (Auto) 2.1, Monocytes # (Auto) 0.6, Eosinophils # (Auto) 0.3, Basophils # (Auto) 0.0 04/11/19 21:48 Red Blood Count 3.59 L, Mean Corpuscular Volume 93.9, Mean Corpuscular Hemoglobin 32.0, Mean Corpuscular Hemoglobin Concent 34.1, Red Cell Distribution Width 12.5, Neutrophils (%) (Auto) 52.1, Lymphocytes (%) (Auto) 35.2, Monocytes (%) (Auto) 7.8 H, Eosinophils (%) (Auto) 4.3 H, Basophils (%) (Auto) 0.3, Neutrophils # (Auto) 4.7, Lymphocytes # (Auto) 3.2, Monocytes # (Auto) 0.7, Eosinophils # (Auto) 0.4, Basophils # (Auto) 0.0 04/12/19 00:17 Red Blood Count 3.43 L, Mean Corpuscular Volume 91.3, Mean Corpuscular Hemoglobin 30.6, Mean Corpuscular Hemoglobin Concent 33.5, Red Cell Distribution Width 12.6 04/12/19 04:59 Red Blood Count 3.69 L, Mean Corpuscular Volume 92.7, Mean Corpuscular Hemoglobin 31.4, Mean Corpuscular Hemoglobin Concent 33.9, Red Cell Distribution Width 13.1, Neutrophils (%) (Auto) 72.9 H, Lymphocytes (%) (Auto) 20.2 L, Monocytes (%) (Auto) 5.7 H, Eosinophils (%) (Auto) 0.8, Basophils (%) (Auto) 0.2, Neutrophils # (Auto) 6.5, Lymphocytes # (Auto) 1.8, Monocytes # (Auto) 0.5, Eosinophils # (Auto) 0.1, Basophils # (Auto) 0.0 Microbiology Microbiology 04/11/19 Gastrointestinal Tract Panel (PCR) - Final, Complete YNES OLGUIN PA-C Apr 12, 2019 09:57 Bari Zapata M.D. Apr 12, 2019 17:37
[2019-04-12 12:33] LABS: HEMATOCRIT 35.3 % (36.0-47.0); HEMOGLOBIN 11.9 g/dl (12.0-15.5)
--- NOTE | 2019-04-12 17:32 | CR ---
DATE OF CONSULTATION: CHIEF COMPLAINT: Blood in the stool. HISTORY OF PRESENT ILLNESS: The patient is a 64-year-old female, who presents with four to five episodes of bloody bowel movements that started yesterday afternoon. She came into emergency room for evaluation. Her hemoglobin was stable. She did not have any more bowel movements and was plan to be discharged. However, soon after that she stood up had a large bloody bowel movement again, became syncopal and they repeated another complete blood count (CBC) then that showed she had dropped another unit. She was started on blood in the emergency room and admitted to hospital service and I was consulted to evaluate. She has had previous upper and lower endoscopy done by Dr. Pollock in July 2015. She did have some small polyps, as well as mild diverticulosis and internal hemorrhoids. No other complications at that time. She denies any nausea or vomiting. No other blood in her stool prior to this, no other abdominal pains prior to this and no unexplained weight loss. She incidentally does have a large mass on her left kidney that was found during CT scan in the emergency room. She has already been evaluated by urology for that and they are planning outpatient workup and possible surgery in the near future for that. PAST MEDICAL HISTORY: 1. Diabetes. 2. Hypertension. 3. Hyperlipidemia. 4. Gastroesophageal reflux disease. 5. Osteoporosis. 6. Depression. 7. Irritable bowel syndrome. PAST SURGICAL HISTORY: 1. Hysterectomy. 2. 3. Right breast cyst. SOCIAL HISTORY: Denies drug, alcohol, tobacco abuse. FAMILY HISTORY: Noncontributory. ALLERGIES: Penicillin. MEDICATIONS: Please see med rec. REVIEW OF SYSTEMS: Pertinent positives and negatives as stated in history of present illness. PHYSICAL EXAMINATION: GENERAL: Alert and oriented times 3 in no acute stress. VITALS: Temperature 98.9, pulse 76, respirations 18, blood pressure 128/83, pulse oximetry 96% room air. HEENT: Pupils equal round react to light accommodation. HEART: S1, S2 regular rate and rhythm. LUNGS: Clear to auscultation bilaterally. ABDOMEN: Soft, nontender, nondistended. EXTREMITIES: No clubbing, cyanosis or edema. LABORATORY DATA: White count 8.9, hemoglobin is 11.6, platelets 228, potassium 3.7, creatinine 0.74. IMAGING STUDIES: CT abdomen and pelvis from the emergency room shows diffuse decrease in hepatic, parenchymal density consistent with fatty infiltration, small hiatal hernia, solid mass in upper pole left kidney measuring 4.9 x 5.1 x 4.2 cm consistent with renal cell carcinoma, increased feces throughout the colon consistent with constipation. ASSESSMENT/PLAN: 64-year-old female with a history of constipation, irritable bowel syndrome (IBS), presented with multiple bloody bowel movements likely secondary to diverticulosis bleed, less likely secondary to internal hemorrhoids or this renal cell mass. She has not had any bloody bowel movement since the emergency room. She has no other abdominal complaints at this time and her hemoglobin is stable and rising on its own. Plan at this time is for back to regular diet. Continue to monitor her til the morning. As long as she remains stable, she can be discharged home and then recommend outpatient colonoscopy within the next 4-6 weeks. If for some reason her hemoglobin drops and she continues to have bloody bowel movements, then we can reconsider and plan for colonoscopy during this inpatient stay. I have discussed this in detail with her, she understands and is in agreement with the plan.
[2019-04-12 18:16] LABS: HEMATOCRIT 33.7 % (36.0-47.0); HEMOGLOBIN 11.6 g/dl (12.0-15.5)
[2019-04-12] MEDS: METAMUCIL (PSYLLIUM) PACKET PO SCH (20:31)
[2019-04-13 00:30] LABS: HEMATOCRIT 30.2 % (36.0-47.0); HEMOGLOBIN 10.2 g/dl (12.0-15.5)
[2019-04-13] MEDS: D5W/0.9% SODIUM CHLORIDE 1,000 ML IV SCH (02:09)
[2019-04-13 04:00] VITALS: BP 130/69
[2019-04-13 06:20] LABS: HEMATOCRIT 30.1 % (36.0-47.0); HEMOGLOBIN 9.9 g/dl (12.0-15.5); MEAN CORPUSCULAR HEMOGLOBIN 30.6 pg (27.0-33.0); MEAN CORPUSCULAR HGB CONC 32.9 g/dl (32.0-36.5); MEAN CORPUSCULAR VOLUME 92.9 fl (80.0-96.0); PLATELET COUNT, AUTOMATED 183 10^3/uL (150-450); RED BLOOD COUNT 3.24 10^6/uL (4.00-5.40)
[2019-04-13 06:34] LABS: BLOOD UREA NITROGEN 16 MG/DL (7-18); CARBON DIOXIDE LEVEL 25 MEQ/L (21-32); CHLORIDE LEVEL 115 MEQ/L (98-107); CREATININE FOR GFR 0.61 MG/DL (0.55-1.30); GLOMERULAR FILTRATION RATE > 60.0 (>45); GLUCOSE, FASTING 135 MG/DL (70-100); POTASSIUM SERUM 3.5 MEQ/L (3.5-5.1); SODIUM LEVEL 145 MEQ/L (136-145)
[2019-04-13] MEDS: HumaLOG INSULIN (NovoLOG) PER UNIT SC SCH ×4 (07:30→21:00)
[2019-04-13 08:00] VITALS: BP 137/65
[2019-04-13 12:00] VITALS: BP 136/75
[2019-04-13 12:03] LABS: HEMATOCRIT 31.3 % (36.0-47.0); HEMOGLOBIN 10.8 g/dl (12.0-15.5)
[2019-04-13 16:00] VITALS: BP 135/77
[2019-04-13 16:21] LABS: HEMOGLOBIN 10.1 g/dl (12.0-15.5); MEAN CORPUSCULAR HEMOGLOBIN 30.6 pg (27.0-33.0); MEAN CORPUSCULAR HGB CONC 33.7 g/dl (32.0-36.5); MEAN CORPUSCULAR VOLUME 90.9 fl (80.0-96.0); PLATELET COUNT, AUTOMATED 196 10^3/uL (150-450); WHITE BLOOD COUNT 7.1 10^3/uL (4.0-10.0)
--- NOTE | 2019-04-13 16:42 | DSES ---
DATE OF ADMISSION: 04/11/2019 DATE OF DISCHARGE: 04/13/2019 REASON FOR ADMISSION: Ms. Quiros was admitted with rectal bleeding, dark red blood occurred in the toilet bowel, admitted on 04/11/2019. The patient saw Renae Majano NP. She had no abdominal pain. She had 4-5 movements with blood obviously there. She had a syncopal event associated with passage of 405 bowel movements containing blood. CT scan was done of the abdomen and this showed a 4.98 x 5.1 x 4.2 cm left superiorly situated enhancing solid mass consistent with renal cell carcinoma. The patient is aware of the findings. She has a past history of diabetes, type 2 managed with diet alone, gastroesophageal reflux disease (GERD), dyslipidemia, hypertension, and irritable bowel syndrome. She does use fiber everyday. OUTPATIENT MEDICATIONS: Not listed in her admission note but the reconciled medications demonstrate a history of using: - loratadine 5 mg daily - losartan 50 daily - hydrochlorothiazide 12.5 mg daily - omeprazole 40 mg daily - Metamucil one packet daily - simvastatin 40 mg daily HOSPITAL COURSE: The patient received two transfusions, two units of packed cells were given on 04/12/2019. This restored her hemoglobin from 9.9 up to 10.8. She had a hemoglobin of 12.5 on presentation and evidence of gastrointestinal (GI) bleeding. She received a two-unit transfusion on 04/12/2019 as noted. Since then, her hemoglobin has rebounded and actually come up today so that she is 10.8 on the day of discharge. CT showed stool in her colon and no other findings. Presumed diverticular bleed. A colonoscopy was [place] in [address] Pollock that did demonstrate some diverticulosis, not extensive or severe by his description, however, and at this time, her hemoglobin seems to be stable. She has no evidence of active bleeding. Condition, thereby ready for discharge. Her pressure is satisfactory and she is up and around without symptoms. DISCHARGE DIAGNOSIS: 1. Lower gastrointestinal (GI) bleeding with acute GI blood loss. 2. Anemia secondary to GI blood loss. 3. Diverticulosis. 4. History of hypertension. At the time of discharge, she will resume her usual preadmission medications with the exception of the hydrochlorothiazide will be withheld until her pressure demonstrates requirement for resumption of the thiazide diuretic. She may resume a regular diet with the exception of avoiding roughage. She should use her Metamucil, drink plenty of fluids. Activity as tolerated. She is requesting an immediate note for return to work and considering that she is up and around here without difficulty, I think this is permissible. Notes will be created to that effect using the [facility] system once that system is back online.
[2019-04-13 20:00] VITALS: BP 110/58
[2019-04-13] MEDS: METAMUCIL (PSYLLIUM) PACKET PO SCH (21:00)
[2019-04-13] MEDS: OMEPRAZOLE 20 MG CAP PO SCH (21:14)
[2019-04-13] MEDS: SIMVASTATIN 40 MG TAB PO SCH (21:14)
[2019-04-13 23:59] VITALS: BP 125/63
[2019-04-14 04:00] VITALS: BP 129/60
[2019-04-14 05:44] LABS: HEMATOCRIT 27.8 % (36.0-47.0); HEMOGLOBIN 9.4 g/dl (12.0-15.5); MEAN CORPUSCULAR HEMOGLOBIN 30.5 pg (27.0-33.0); MEAN CORPUSCULAR HGB CONC 33.8 g/dl (32.0-36.5); MEAN CORPUSCULAR VOLUME 90.3 fl (80.0-96.0); PLATELET COUNT, AUTOMATED 192 10^3/uL (150-450); RED BLOOD COUNT 3.08 10^6/uL (4.00-5.40); WHITE BLOOD COUNT 7.3 10^3/uL (4.0-10.0)
[2019-04-14 06:02] LABS: BLOOD UREA NITROGEN 14 MG/DL (7-18); CARBON DIOXIDE LEVEL 26 MEQ/L (21-32); CHLORIDE LEVEL 113 MEQ/L (98-107); GLOMERULAR FILTRATION RATE > 60.0 (>45); GLUCOSE, FASTING 108 MG/DL (70-100); POTASSIUM SERUM 3.7 MEQ/L (3.5-5.1); SODIUM LEVEL 143 MEQ/L (136-145)
[2019-04-14] MEDS: HumaLOG INSULIN (NovoLOG) PER UNIT SC SCH ×4 (07:30→21:00)
[2019-04-14 08:00] VITALS: BP 141/76
[2019-04-14] MEDS ORDERED: SLF 3 ML SYR IV PRN (10:30)
--- NOTE | 2019-04-14 10:42 | IPNPDOC ---
Subjective Date Seen The patient was seen on 04/14/19. Subjective Chief Complaint/HPI bleeding continued and was noticed just before planned discharge yesterday. discharge cancelled, then passed larger amount. no pain, no nausea, no cramps, no fever. Constitutional: Denies: Chills, Fever, Night Sweats ENT: Denies: Head Aches Pulmonary: Denies: Dyspnea, Pleuritic Chest Pain Cardiovascular: Denies: Chest Pain, Orthopnea Gastrointestinal: Denies: Nausea, Abdominal Pain Genitourinary: Denies: Dysuria Neurological: Denies: Weakness Psych: Reports: Mood Normal Objective Physical Examination General Exam: Positive: Alert, Cooperative, No Acute Distress ENT Exam: Positive: Mucous membr. moist/pink Neck Exam: Positive: Supple Chest Exam: Positive: Clear to auscultation, Normal air movement Heart Exam: Positive: Rate Normal, Normal S1, Normal S2 Abdomen Exam: Positive: Normal bowel sounds, Soft; Negative: Tenderness Extremity Exam: Negative: Edema Neuro Exam: Positive: Normal Speech Psych Exam: Positive: Mental status NL, Mood NL Assessment /Plan Problems (1) Lower GI bleed Status: Acute Response to Treatment: Stable Problem Specific Plan: Monitor Clinically Problem Text: 04/14: had been scheduled for discharge with no further bleeding and stable hgb then she reported a small amount of blood in stool, discharge cancelled and then passed larger amount of blood again. Dr. Esposito had indicated plan to arrange colonoscopy if she continued to bleed. Will try to contact Dr. Sy who is food and nutrition professor for weekend to see about trying to arrange. Will start Clear liquid diet but only order bowel prep if she can be confirmed for tomorrow. favor tic bleed Pt has received 2 units pRBCs although her Hgb never dropped below 10.5. This morning she is 11.6, will cont to monitor. She reports no additional bloody stools since admission, although she reports she has mtp in the ED. She is NPO except for sips, IVF running. GS consulted from ED. 07/2015 EGD/colon-2 mm hyperplastic polyp-Reindl No further syncopal symptoms, no head CT done in ED. Tele has been unremarkable. (2) Syncope and collapse Status: Acute Response to Treatment: Stable Problem Text: See above. (3) Acute blood loss anemia Status: Acute Response to Treatment: Stable Problem Text: 04/14: Hgb down since yesterday to 9.4. Will repeat CBC this afternoon. See above. (4) Renal mass, left Status: Acute Response to Treatment: Stable Problem Specific Plan: Monitor Clinically Problem Text: Now states that she would prefer to be seen by Dr. Alvarado and she doesn't know who Dr. Briceno is? Either way, appropriate for her to have consult promptly after discharge with Urology. Pt has been seen by Dr Briceno, recommends outpt mgmt. Pt and family aware. (5) DM2 (diabetes mellitus, type 2) Status: Chronic Response to Treatment: Stable Problem Text: SSI/FSBS. Plan/VTE VTE Prophylaxis Ordered?: No VTE Exclusion Pharmacological: Active Bleeding VS, I&O, 24H, Fishbone Vital Signs/I&O Vital Signs Date Time Temp Pulse Resp B/P (MAP) Pulse Ox O2 Delivery O2 Flow Rate FiO2 04/14/19 08:00 98.9 75 18 141/76 (97) 98 04/12/19 00:51 Room Air I&O- Last 24 Hours up to 6 AM 04/14/19 06:00 Intake Total 1492 ml Output Total 750 ml Balance 742 ml Laboratory Data 24H LABS Laboratory Tests 2 04/13/19 12:08: Bedside Glucose (Misc Panel) 151H 04/13/19 16:03: Nucleated Red Blood Cells % (auto) 0.0 04/13/19 16:33: Bedside Glucose (Misc Panel) 111 04/13/19 21:09: Bedside Glucose (Misc Panel) 113 04/14/19 05:26: Nucleated Red Blood Cells % (auto) 0.0, Anion Gap 4L, Glomerular Filtration Rate > 60.0, Blood Urea Nitrogen 14, Creatinine 0.60, Sodium Level 143, Potassium Level 3.7, Chloride Level 113H, Carbon Dioxide Level 26, Calcium Level 8.0L CBC/BMP Laboratory Tests 04/13/19 11:57 04/13/19 16:03 Red Blood Count 3.30 L, Mean Corpuscular Volume 90.9, Mean Corpuscular Hemoglobin 30.6, Mean Corpuscular Hemoglobin Concent 33.7, Red Cell Distribution Width 13.3 04/14/19 05:26 Red Blood Count 3.08 L, Mean Corpuscular Volume 90.3, Mean Corpuscular Hemoglobin 30.5, Mean Corpuscular Hemoglobin Concent 33.8, Red Cell Distribution Width 13.2, Calcium Level 8.0 L Microbiology Microbiology 04/11/19 Gastrointestinal Tract Panel (PCR) - Final, Complete Berto Yanez MD Apr 14, 2019 10:42
[2019-04-14 12:00] VITALS: BP 130/70
[2019-04-14] MEDS: SLF 3 ML SYR IV SCH ×2 (13:33→21:13)
[2019-04-14 16:00] VITALS: BP 149/76
[2019-04-14 16:32] LABS: HEMATOCRIT 28.6 % (36.0-47.0); HEMOGLOBIN 9.7 g/dl (12.0-15.5); MEAN CORPUSCULAR HEMOGLOBIN 31.2 pg (27.0-33.0); MEAN CORPUSCULAR HGB CONC 33.9 g/dl (32.0-36.5); PLATELET COUNT, AUTOMATED 209 10^3/uL (150-450); RED BLOOD COUNT 3.11 10^6/uL (4.00-5.40); WHITE BLOOD COUNT 8.1 10^3/uL (4.0-10.0)
[2019-04-14] MEDS ORDERED: GOLYTELY SOLN 4000 ML BTL PO ONE (18:00)
[2019-04-14 20:00] VITALS: BP 141/73
[2019-04-14] MEDS: SIMVASTATIN 40 MG TAB PO SCH (21:08)
[2019-04-14] MEDS: OMEPRAZOLE 20 MG CAP PO SCH (21:08)
[2019-04-14] MEDS ORDERED: BISACODYL 5 MG TAB PO ONE (22:00)
[2019-04-14] MEDS ORDERED: ONDANSETRON 4MG/2ML VIAL (J2405) IV PRN (23:30)
[2019-04-15] VITALS (9 sets, daily range): BP systolic 115–173; BP diastolic 56–94
[2019-04-15 05:37] LABS: HEMATOCRIT 25.4 % (36.0-47.0); HEMOGLOBIN 8.6 g/dl (12.0-15.5); MEAN CORPUSCULAR HEMOGLOBIN 31.6 pg (27.0-33.0); MEAN CORPUSCULAR HGB CONC 33.9 g/dl (32.0-36.5); MEAN CORPUSCULAR VOLUME 93.4 fl (80.0-96.0); PLATELET COUNT, AUTOMATED 189 10^3/uL (150-450); RED BLOOD COUNT 2.72 10^6/uL (4.00-5.40); WHITE BLOOD COUNT 7.3 10^3/uL (4.0-10.0)
[2019-04-15] MEDS: SLF 3 ML SYR IV SCH ×3 (05:56→21:00)
[2019-04-15 06:00] LABS: BLOOD UREA NITROGEN 12 MG/DL (7-18); CALCIUM LEVEL 8.5 MG/DL (8.8-10.2); CARBON DIOXIDE LEVEL 27 MEQ/L (21-32); CHLORIDE LEVEL 110 MEQ/L (98-107); CREATININE FOR GFR 0.64 MG/DL (0.55-1.30); GLOMERULAR FILTRATION RATE > 60.0 (>45); GLUCOSE, FASTING 116 MG/DL (70-100); POTASSIUM SERUM 3.5 MEQ/L (3.5-5.1); SODIUM LEVEL 144 MEQ/L (136-145)
[2019-04-15] MEDS: HumaLOG INSULIN (NovoLOG) PER UNIT SC SCH ×4 (07:30→21:00)
--- NOTE | 2019-04-15 07:32 | IPNPDOC ---
Text Note Date of Service The patient was seen on 04/15/19. NOTE To OR for colonoscopy this am. No changes to H+P. consent is signed. Angel Esposito DO VS,Brunilda, I+O VS, Brunilda, I+O Laboratory Tests 04/14/19 15:55 Red Blood Count 3.11 L, Mean Corpuscular Volume 92.0, Mean Corpuscular Hemoglobin 31.2, Mean Corpuscular Hemoglobin Concent 33.9, Red Cell Distribution Width 13.1 04/15/19 05:15 Red Blood Count 2.72 L, Mean Corpuscular Volume 93.4, Mean Corpuscular Hemoglobin 31.6, Mean Corpuscular Hemoglobin Concent 33.9, Red Cell Distribution Width 12.9, Calcium Level 8.5 L Vital Signs Date Time Temp Pulse Resp B/P (MAP) Pulse Ox O2 Delivery O2 Flow Rate FiO2 04/15/19 04:00 97.0 72 18 129/66 (87) 100 04/12/19 00:51 Room Air I&O- Last 24 Hours up to 6 AM 04/15/19 06:00 Intake Total 3080 ml Output Total 1750 ml Balance 1330 ml ROB ESPOSITO DO Apr 15, 2019 07:32
[2019-04-15] MEDS ORDERED: PROPOFOL 200 MG/20 ML VIAL As Ordered ONE ×2 (07:43→07:58)
[2019-04-15] MEDS ORDERED: GLYCOPYRROLATE INJ 0.2 MG/ML 2 ML VIAL As Ordered ONE (07:49)
--- NOTE | 2019-04-15 09:30 | RO ---
DATE OF PROCEDURE: 04/15/2019 PREOPERATIVE DIAGNOSIS: GI bleeding. POSTOPERATIVE DIAGNOSIS: Diverticulosis, internal hemorrhoids and partially poor prep. No sign of any active bleeding or signs of areas that have been bleeding. SURGEON: Dr. Esposito HEATER OPERATOR: None. ANESTHESIA: IV sedation. COMPLICATIONS: None. ESTIMATED BLOOD LOSS: None. INDICATIONS FOR PROCEDURE: Patient is a 64-year-old female with a history of lower GI bleeding. Recommendation was to proceed with colonoscopy. Risks and benefits of the procedure but not limited to but including bleeding, perforation, damage to surrounding structures and need for further surgery discussed in detail with the patient and informed consent was obtained and procedure was planned. PROCEDURE: The patient brought back to operating room four after sufficient sedation. She was placed in the left lateral decubitus position. Next a colonoscope was passed all way to level the cecum. Once the cecum was identified the scope was slowly retracted backwards. There was some very mild diverticulosis identified in the sigmoid colon. No signs of any polyps or masses throughout the entire colon. No signs of any AVN. No diverticulosis. Scope was brought all the way back into the rectum and retroflexed. There were some internal hemorrhoids identified but again no signs of any recent or active bleeding. The scope was then removed. Patient was awakened from anesthesia and sent to postanesthesia care unit in stable condition.
--- NOTE | 2019-04-15 11:43 | IPNPDOC ---
Subjective Date Seen The patient was seen on 04/15/19. Subjective Chief Complaint/HPI Pt this morning doing well. She has undergone colonoscopy this morning. She state no further bleeding with bowel movements since Sat. General: Denies: Fatigue Constitutional: Denies: Chills, Fever Pulmonary: Denies: Dyspnea, Cough Cardiovascular: Denies: Chest Pain, Palpitations Gastrointestinal: Denies: Nausea, Vomiting, Diarrhea Neurological: Denies: Weakness Psych: Reports: Mood Normal Objective Physical Examination General Exam: Positive: Alert, Cooperative, No Acute Distress ENT Exam: Positive: Mucous membr. moist/pink Neck Exam: Positive: Supple Chest Exam: Positive: Clear to auscultation, Normal air movement Heart Exam: Positive: Rate Normal, Normal S1, Normal S2 Abdomen Exam: Positive: Normal bowel sounds, Soft; Negative: Tenderness Extremity Exam: Negative: Edema Neuro Exam: Positive: Normal Speech Psych Exam: Positive: Mental status NL, Mood NL Assessment /Plan Problems (1) Lower GI bleed Status: Acute Response to Treatment: Stable Problem Specific Plan: Monitor Clinically Problem Text: 04/15 Colonnsocopy with mild diverticulosis, hemorrhoids, no signs of bleeding. Hgb dropped overnight, will monitor today, if remains stable plan for d/c in AM. Pt aware. 04/14: had been scheduled for discharge with no further bleeding and stable hgb then she reported a small amount of blood in stool, discharge cancelled and then passed larger amount of blood again. Dr. Esposito had indicated plan to arrange colonoscopy if she continued to bleed. Will try to contact Dr. Sy who is front office help for weekend to see about trying to arrange. Will start Clear liquid diet but only order bowel prep if she can be confirmed for tomorrow. favor tic bleed Pt has received 2 units pRBCs although her Hgb never dropped below 10.5. This morning she is 11.6, will cont to monitor. She reports no additional bloody stools since admission, although she reports she has mtp in the ED. She is NPO except for sips, IVF running. GS consulted from ED. 07/2015 EGD/colon-2 mm hyperplastic polyp-Reindl No further syncopal symptoms, no head CT done in ED. Tele has been unremarkable. (2) Acute blood loss anemia Status: Acute Response to Treatment: Stable Problem Text: 04/15: Hemoglobin drifted down overnight, but is not clear if this is physiologic fluctuation or evidence of continued bleeding. We'll order a midday reevaluation as well as morning labs tomorrow. This should help clarify the trend. 04/14: Hgb down since yesterday to 9.4. Will repeat CBC this afternoon. See above. (3) Renal mass, left Status: Acute Response to Treatment: Stable Problem Specific Plan: Monitor Clinically Problem Text: Now states that she would prefer to be seen by Dr. Alvarado and she doesn't know who Dr. Briceno is? Either way, appropriate for her to have consult promptly after discharge with Urology. Pt has been seen by Dr Briceno, recommends outpt mgmt. Pt and family aware. (4) DM2 (diabetes mellitus, type 2) Status: Chronic Response to Treatment: Stable Problem Text: SSI/FSBS. (5) Syncope and collapse Status: Resolved Response to Treatment: Stable Problem Text: See above. Plan/VTE VTE Prophylaxis Ordered?: No VTE Exclusion Pharmacological: Active Bleeding Plan Family Medicine Attending Note: I saw and examined Ms. Quiros, discussed with Ynes Molina, R-PAC. Agree with her note as documented. The patient has not had further bleeding. Her colonoscopy did not show source of the bleed. I discussed what diverticulosis is and how a nonactive diverticular bleed might not be noted on a colonoscopy. She is willing to stay through tomorrow to verify stability of her hemoglobin. She reports she has to work on Monday and is very interested in being able to do this. We'll monitor carefully. 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, I&O, 24H, Fishbone Vital Signs/I&O Vital Signs Date Time Temp Pulse Resp B/P (MAP) Pulse Ox O2 Delivery O2 Flow Rate FiO2 04/15/19 10:15 96.7 85 18 119/56 (77) 98 04/12/19 00:51 Room Air I&O- Last 24 Hours up to 6 AM 04/15/19 06:00 Intake Total 3080 ml Output Total 1750 ml Balance 1330 ml Laboratory Data 24H LABS Laboratory Tests 2 04/14/19 15:55: Nucleated Red Blood Cells % (auto) 0.0 04/14/19 16:58: Bedside Glucose (Misc Panel) 127H 04/14/19 21:13: Bedside Glucose (Misc Panel) 195H 04/15/19 05:15: Nucleated Red Blood Cells % (auto) 0.0, Anion Gap 7L, Glomerular Filtration Rate > 60.0, Blood Urea Nitrogen 12, Creatinine 0.64, Sodium Level 144, Potassium Level 3.5, Chloride Level 110H, Carbon Dioxide Level 27, Calcium Level 8.5L CBC/BMP Laboratory Tests 04/14/19 15:55 Red Blood Count 3.11 L, Mean Corpuscular Volume 92.0, Mean Corpuscular Hemoglobin 31.2, Mean Corpuscular Hemoglobin Concent 33.9, Red Cell Distribution Width 13.1 04/15/19 05:15 Red Blood Count 2.72 L, Mean Corpuscular Volume 93.4, Mean Corpuscular Hemoglobin 31.6, Mean Corpuscular Hemoglobin Concent 33.9, Red Cell Distribution Width 12.9, Calcium Level 8.5 L Microbiology Microbiology 04/11/19 Gastrointestinal Tract Panel (PCR) - Final, Complete YNES MOLINA PA-C Apr 15, 2019 11:43 Joey Alexis MD Apr 15, 2019 18:23
[2019-04-15 17:21] LABS: HEMATOCRIT 26.7 % (36.0-47.0); HEMOGLOBIN 9.1 g/dl (12.0-15.5)
--- NOTE | 2019-04-15 17:25 | REP ---
Chest x-ray: Two views. History: Left renal mass. Comparison study: July 15, 2012. Findings: The lungs are symmetrically aerated and free of infiltrate. Pleural angles are sharp. Heart is not felt to be enlarged. There are degenerative changes in the thoracic spine. There is a granulomatous calcification projecting in the left base. Impression: No acute disease. Electronically Signed by Tristian Orellana MD 04/15/2019 06:01 P
[2019-04-15] MEDS: OMEPRAZOLE 20 MG CAP PO SCH (21:00)
[2019-04-15] MEDS: SIMVASTATIN 40 MG TAB PO SCH (21:00)
[2019-04-16] VITALS: BP 147/74
[2019-04-16 04:00] VITALS: BP 140/80
[2019-04-16 05:45] LABS: HEMATOCRIT 26.6 % (36.0-47.0); HEMOGLOBIN 8.7 g/dl (12.0-15.5); MEAN CORPUSCULAR HEMOGLOBIN 30.9 pg (27.0-33.0); MEAN CORPUSCULAR HGB CONC 32.7 g/dl (32.0-36.5); MEAN CORPUSCULAR VOLUME 94.3 fl (80.0-96.0); PLATELET COUNT, AUTOMATED 149 10^3/uL (150-450); RED BLOOD COUNT 2.82 10^6/uL (4.00-5.40); WHITE BLOOD COUNT 7.4 10^3/uL (4.0-10.0)
[2019-04-16] MEDS: SLF 3 ML SYR IV SCH (05:50)
[2019-04-16 06:07] LABS: BLOOD UREA NITROGEN 14 MG/DL (7-18); CALCIUM LEVEL 8.4 MG/DL (8.8-10.2); CARBON DIOXIDE LEVEL 23 MEQ/L (21-32); CHLORIDE LEVEL 111 MEQ/L (98-107); CREATININE FOR GFR 0.65 MG/DL (0.55-1.30); GLOMERULAR FILTRATION RATE > 60.0 (>45); GLUCOSE, FASTING 117 MG/DL (70-100); SODIUM LEVEL 143 MEQ/L (136-145)
[2019-04-16] MEDS: HumaLOG INSULIN (NovoLOG) PER UNIT SC SCH (07:30)
[2019-04-16 07:39] VITALS: BP 153/67
== END 2019-04-16 09:43 | disposition home or self-care (01) | DRG 253 ==
LOC: M ED 18:16 → M ED INP 23:28 → M PCU 04-12 01:09
PROVIDERS: ADMIT Internal Medicine; ATTEND Family Medicine
PROC: 30233N1 Transfusion of Nonautologous Red Blood Cells into Peripheral Vein, Percutaneous Approach (ICD-10-PCS; 2019-04-11)
PROC: 0DJD8ZZ Inspection of Lower Intestinal Tract, Via Natural or Artificial Opening Endoscopic (ICD-10-PCS; principal; 2019-04-15 07:30)
DX: K92.2 Gastrointestinal hemorrhage, unspecified (principal); I10 Essential (primary) hypertension; C64.2 Malignant neoplasm of left kidney, except renal pelvis; E11.9 Type 2 diabetes mellitus without complications; D62 Acute posthemorrhagic anemia; K57.30 Diverticulosis of large intestine without perforation or abscess without bleeding; E78.5 Hyperlipidemia, unspecified; K21.9 Gastro-esophageal reflux disease without esophagitis; M81.0 Age-related osteoporosis without current pathological fracture; K58.1 Irritable bowel syndrome with constipation; K64.8 Other hemorrhoids; Z90.710 Acquired absence of both cervix and uterus; R55 Syncope and collapse; Z88.0 Allergy status to penicillin; Z79.899 Other long term (current) drug therapy

== ENCOUNTER → 2019-05-23 | Outpatient (CLI) | payer BC ==
[~2019-05-23] MED LIST changes: +CALC600T60 PO; +DESL5TAB11 PO; +HYDR12CA PO; +LOSA50TA88 PO; +META0.52 PO; +META58.68 PO; +MULT1TAB50 PO; -OMEP40CA2 PO; +OMEP40CA97 PO
[2019-05-23 08:16] LABS: HEMATOCRIT 39.7 % (36.0-47.0); HEMOGLOBIN 12.7 g/dl (12.0-15.5); MEAN CORPUSCULAR HEMOGLOBIN 30.5 pg (27.0-33.0); MEAN CORPUSCULAR VOLUME 95.4 fl (80.0-96.0); PLATELET COUNT, AUTOMATED 300 10^3/uL (150-450); RED BLOOD COUNT 4.16 10^6/uL (4.00-5.40); WHITE BLOOD COUNT 6.7 10^3/uL (4.0-10.0)
[2019-05-23 08:37] LABS: BLOOD UREA NITROGEN 20 MG/DL (7-18); CALCIUM LEVEL 9.5 MG/DL (8.8-10.2); CARBON DIOXIDE LEVEL 26 MEQ/L (21-32); CHLORIDE LEVEL 110 MEQ/L (98-107); CREATININE FOR GFR 0.71 MG/DL (0.55-1.30); GLOMERULAR FILTRATION RATE > 60.0 (>45); GLUCOSE, FASTING 114 MG/DL (70-100); SODIUM LEVEL 143 MEQ/L (136-145)
[2019-05-23 08:38] LABS: INR 0.94; PROTHROMBIN TIME 12.3 SECONDS (11.8-14.0)
[2019-05-23 08:39] LABS: PARTIAL THROMBOPLASTIN TIME 30.8 SECONDS (25.0-38.4)
[2019-05-23 08:42] LABS: APPEARANCE, URINE CLEAR (CLEAR); BACTERIA, URINE AUTO NEGATIVE (NEGATIVE); BILIRUBIN, URINE AUTO NEGATIVE (NEGATIVE); BLOOD, URINE BLOOD NEGATIVE (NEGATIVE); COLOR, URINE YELLOW (YELLOW); GLUCOSE, URINE (UA) AUTO NEGATIVE (NEGATIVE); KETONE, URINE AUTO NEGATIVE (NEGATIVE); LEUKOCYTE ESTERASE, URINE AUTO TRACE (NEGATIVE); MUCUS, URINE SMALL (NEGATIVE); NITRITE, URINE AUTO NEGATIVE (NEGATIVE); PROTEIN, URINE AUTO NEGATIVE (NEGATIVE); RBC, URINE AUTO 3 /HPF (0-3); SPECIFIC GRAVITY URINE AUTO 1.019 (1.002-1.035); SQUAMOUS EPITHELIAL CELL UR AU 0 /HPF (0-6); UROBILINOGEN, URINE AUTO 0.2 mg/dL (0.0-2.0); WBC, URINE AUTO 2 /HPF (0-3)
== END ==
LOC: M LAB 07:20
PROVIDERS: ATTEND Nurse Practitioner Women's Health
DX: Z01.818 Encounter for other preprocedural examination (principal); N28.89 Other specified disorders of kidney and ureter

== ENCOUNTER → 2019-06-03 | Outpatient (REF) | payer BC | LOC: M LABSMT 12:50 | PROVIDERS: ATTEND Nurse Practitioner Women's Health | DX: N28.89 Other specified disorders of kidney and ureter (principal) ==

== ENCOUNTER 2019-06-12 06:05 | Inpatient (IN) | payer BC ==
[~2019-06-12] VITALS: Ht 147.3 cm; Wt 62.1 kg
[2019-06-12] VITALS (9 sets, daily range): BP systolic 115–144; BP diastolic 62–86
[~2019-06-12 06:05] MED LIST changes: +LR 1,000 ML IV ONE; +LevoFLOXacin IV 500 MG in IV 1 EA IV ONE
[2019-06-12] MEDS ORDERED: dexameTHASONE 4 MG/ML 1ML VIAL (J1100) As Ordered ONE (06:47)
[2019-06-12] MEDS ORDERED: ROCURONIUM BROMIDE 50 MG/5 ML VIAL As Ordered ONE ×3 (06:47→10:24)
[2019-06-12] MEDS ORDERED: PROPOFOL 200 MG/20 ML VIAL As Ordered ONE (06:47)
[2019-06-12] MEDS ORDERED: ONDANSETRON 4MG/2ML VIAL (J2405) As Ordered ONE (06:47)
[2019-06-12] MEDS ORDERED: LIDOCAINE 2% INJ 100 MG/5 ML SDV (FOR ANES.) As Ordered ONE (06:47)
[2019-06-12] MEDS ORDERED: HYDROmorphone HCL 2 MG/ML 1ML VIAL (J1170) As Ordered ONE (06:48)
[2019-06-12] MEDS ORDERED: KETAMINE HCL 200 MG/20 ML VIAL As Ordered ONE (06:48)
[2019-06-12] MEDS ORDERED: fentaNYL 250 MCG/5 ML INJECTION (J3010) As Ordered ONE (06:48)
[2019-06-12] MEDS ORDERED: PROPOFOL 500 MG/50 ML VIAL As Ordered ONE (06:48)
[2019-06-12] MEDS ORDERED: LIDOCAINE 1% SDV INJ 30 ML VIAL As Ordered ONE (06:53)
[2019-06-12] MEDS ORDERED: BUPIVACAINE HCL 0.25% 30 ML VIAL As Ordered ONE (06:54)
[2019-06-12] MEDS ORDERED: SUGAMMADEX SODIUM 500 MG/5 ML VIAL (BRIDION) As Ordered ONE (07:01)
[2019-06-12] MEDS ORDERED: MIDAZOLAM INJ 2 MG/2 ML VIAL (J2250) As Ordered ONE (07:32)
[2019-06-12] MEDS ORDERED: ONDANSETRON 4MG/2ML VIAL (J2405) IV PRN ×2 (07:45→13:15)
[2019-06-12] MEDS ORDERED: PERCOCET 5MG/325MG TAB PO PRN (07:45)
[2019-06-12] MEDS ORDERED: MANNITOL 25% 12.5 GM/50 ML VIAL (J2150) As Ordered ONE (08:37)
[2019-06-12] MEDS ORDERED: ACETAMINOPHEN 1000MG 100ML IV BTL (OFIRMEV) (J0131 PER 10MG) As Ordered ONE ×2 (09:31→14:44)
[2019-06-12] MEDS ORDERED: METOCLOPRAMIDE INJ 10MG/2ML VIAL (J2765) IV PRN (13:15)
[2019-06-12] MEDS ORDERED: LR 1,000 ML IV SCH (13:15)
[2019-06-12] MEDS ORDERED: fentaNYL 100 MCG/2 ML INJECTION (J3010) IV PRN (13:15)
[2019-06-12] MEDS ORDERED: oxyCODONE 5MG TAB PO PRN (13:15)
[2019-06-12] MEDS ORDERED: HYDROMORPHONE HCL 0.5 MG/ 0.5 ML SYRINGE (J1170 PER 1) IV PRN (13:15)
[2019-06-12 13:22] LABS: HEMATOCRIT 36.9 % (36.0-47.0); MEAN CORPUSCULAR HEMOGLOBIN 30.1 pg (27.0-33.0); MEAN CORPUSCULAR HGB CONC 32.5 g/dl (32.0-36.5); MEAN CORPUSCULAR VOLUME 92.5 fl (80.0-96.0); PLATELET COUNT, AUTOMATED 269 10^3/uL (150-450); RED BLOOD COUNT 3.99 10^6/uL (4.00-5.40); WHITE BLOOD COUNT 13.7 10^3/uL (4.0-10.0)
--- NOTE | 2019-06-12 13:34 | ROOPDOC ---
[facility] Report Of Operation Report of Operation DATE OF PROCEDURE: 06/12/19 PREPROCEDURE DIAGNOSIS: Left renal neoplasm. POSTPROCEDURE DIAGNOSIS: Left renal neoplasm. PROCEDURE: Left robotic-assisted laparoscopic partial nephrectomy with intraoperative ultrasound for tumor mapping. SURGEON: Barrera Perez MD MANNEQUIN WIG MAKER: Wanda Devi ANESTHESIA: General OPERATIVE INDICATIONS: This is a 64 year old female recently found to have an approximately 5cm enhancing mass on her left kidney. She was brought to the operating room today for treatment. DESCRIPTION OF PROCEDURE: The patient was brought to the operating room where general anesthesia was induced. Prophylactic antibiotics were infused. A Cowart catheter was inserted into the bladder under sterile conditions and the balloon was filled with sterile water. She was then placed in the right lateral decubitus position. All pressure points were appropriately padded and an axillary roll was placed. We then secured the patient to the table with tape. Her abdomen was then prepped and draped in the usual sterile fashion. Next, an 8mm incision was made in line with the 11th rib along the lateral border of the rectus. Pneumoperitoneum was achieved with a Veress needle. Next, an 8mm port was placed for the camera. At this point, the left robotic port was placed off the costal margin. Two right hand robotic ports were then placed with one between the anterior superior iliac spine and the hip and the other one just caudal to the camera port. Last the 12 mm library clerical assistant port was placed inferior and medial to the camera port. The robot was then docked. The spleen was then dissected off of Gerota's fascia. Next the left colon was dissected off of Gerota's fascia. At this point the left gonadal vein was identified and it was traced cephalad to its insertion into the left renal vein. This was carefully dissected and just inferior to the renal vein, the left renal artery was identified. This was also carefully dissected. Next I had our children's institution attendant administer 12.5g of mannitol. Gerota's fascia was then opened and I defatted the kidney. On the posterior and superior aspect of the kidney the tumor was seen. Ultrasound was then utilized to yusra the boundaries of the mass. Next 2 bulldog clamps were placed on the renal artery and we began resecting the mass. The mass was resected completely and it appeared that we had a good margin. Once the mass was removed, the renorrhaphy was performed first by ligating all vessels in the base of resection with a 2-0 vicryl suture using figure of eight stitches. The capsule of the kidney was then reapproximated using 0-vicryl suture with Weck clips to cinch down the suture. Once this was done the clamps were removed and hemostasis was excellent. The warm ischemia time was 32 minutes. Next Concepcion was applied to the resection bed and the tumor was placed in an endocatch bag. A Emory Messer drain was positioned just lateral to the kidney. The robot was undocked after confirming hemostasis within the abdomen. The library clerical assistant port was then extended at the skin level and then at the fascia. The specimen was then removed in the endocatch bag. The fascia was then closed with a running #0 Vicryl suture. At this point, the abdomen was reinsufflated and we looked back in with the camera and there was no bleeding underneath the extraction site. No abdominal contents were caught within the closure either. We then removed all the ports under direct vision and there was no bleeding from any of the port sites. At this point, all the incisions were thoroughly irrigated. We then closed the skin of each site using a running #4-0 subcuticular Monocryl stitch. The Emory Messer drain was secured to the skin usint #3-0 Ethilon suture. Local anesthetic was then applied to each incision and Dermabond was then applied and this marked the conclusion of the procedure. The patient was then taken out of the left lateral decubitus position, awakened from anesthesia and transported to the recovery room in stable condition. ESTIMATED BLOOD LOSS: 200 mL INTRAOPERATIVE COMPLICATIONS: None SPECIMENS: Left renal neoplasm WARM ISCHEMIA TIME: 32 minutes NORMAL RIGHT RENAL PARENCHYMA SPARED: 90% PLAN: The patient will be admitted to the hospital postoperatively and she will be discharged home once her renal function is stable and she is tolerating a regular diet. BARRERA PEREZ MD Jun 12, 2019 13:34
[2019-06-12 13:36] LABS: BLOOD UREA NITROGEN 16 MG/DL (7-18); CALCIUM LEVEL 8.7 MG/DL (8.8-10.2); CARBON DIOXIDE LEVEL 26 MEQ/L (21-32); CHLORIDE LEVEL 105 MEQ/L (98-107); CREATININE FOR GFR 0.79 MG/DL (0.55-1.30); GLOMERULAR FILTRATION RATE > 60.0 (>45); GLUCOSE, FASTING 171 MG/DL (70-100); POTASSIUM SERUM 3.9 MEQ/L (3.5-5.1); SODIUM LEVEL 138 MEQ/L (136-145)
[2019-06-12] MEDS ORDERED: METHOCARBAMOL 1,000 MG/10 ML VIAL (J2800) As Ordered ONE (14:38)
[2019-06-12] MEDS: DOCUSATE SODIUM 100 MG CAP PO SCH ×2 (15:02→21:00)
[2019-06-12] MEDS: NS 1,000 ML IV SCH ×3 (15:02→22:01)
[2019-06-12] MEDS: PERCOCET 5MG/325MG TAB PO PRN (16:47)
[2019-06-12] MEDS: MORPHINE 2 MG/ML 1ML VIAL (J2270) IV PRN (17:34)
[2019-06-12] MEDS: OMEPRAZOLE 20 MG CAP PO SCH (22:00)
[2019-06-12] MEDS: LOSARTAN 50 MG TAB PO SCH (22:00)
[2019-06-12] MEDS: SIMVASTATIN 40 MG TAB PO SCH (22:00)
[2019-06-13] VITALS (8 sets, daily range): BP systolic 111–140; BP diastolic 55–77
[2019-06-13] MEDS: MORPHINE 2 MG/ML 1ML VIAL (J2270) IV PRN (02:45)
[2019-06-13] MEDS: SIMETHICONE 80 MG CHEW TAB PO PRN ×2 (03:07→21:23)
[2019-06-13 06:32] LABS: HEMATOCRIT 37.6 % (36.0-47.0); HEMOGLOBIN 11.9 g/dl (12.0-15.5); MEAN CORPUSCULAR HEMOGLOBIN 30.1 pg (27.0-33.0); MEAN CORPUSCULAR HGB CONC 31.6 g/dl (32.0-36.5); MEAN CORPUSCULAR VOLUME 95.2 fl (80.0-96.0); PLATELET COUNT, AUTOMATED 238 10^3/uL (150-450); RED BLOOD COUNT 3.95 10^6/uL (4.00-5.40); WHITE BLOOD COUNT 11.5 10^3/uL (4.0-10.0)
[2019-06-13] MEDS: NS 1,000 ML IV SCH (06:35)
[2019-06-13 06:51] LABS: BLOOD UREA NITROGEN 12 MG/DL (7-18); CALCIUM LEVEL 8.8 MG/DL (8.8-10.2); CARBON DIOXIDE LEVEL 24 MEQ/L (21-32); CHLORIDE LEVEL 111 MEQ/L (98-107); CREATININE FOR GFR 0.78 MG/DL (0.55-1.30); GLOMERULAR FILTRATION RATE > 60.0 (>45); GLUCOSE, FASTING 124 MG/DL (70-100); POTASSIUM SERUM 3.8 MEQ/L (3.5-5.1); SODIUM LEVEL 141 MEQ/L (136-145)
--- NOTE | 2019-06-13 07:48 | IPNPDOC ---
Subjective Review oF Systems Chief Complaint The patient is a 64-year-old female admitted with a reason for visit of Renal Mass. Events since Last Encounter No acute events o/n. Patient had a moderate amount of pain from residual gas in her abd from pneumoperitoneum. This improved w/ ambulation. Denies n/v. Ambulating well. No f/c/ns. Objective Physical Examination General Exam: Alert, Cooperative, No Acute Distress ABDOMEN EXAM: Soft, Tenderness (mild), Other (incisions clean/dry/intact; ELOINA w/ serosang output) Skin Exam: Nl turgor and temperature Neuro Exam: Normal Speech Psych Exam: Mental status NL, Mood NL Other physical findings catheter draining clear urine Vital Signs/I&O Vital Signs Date Time Temp Pulse Resp B/P (MAP) Pulse Ox O2 Delivery O2 Flow Rate FiO2 06/13/19 06:00 98.2 75 18 133/62 (85) 94 06/12/19 19:00 Room Air 06/12/19 18:00 I&O- Last 24 Hours up to 6 AM 06/13/19 06:00 Intake Total 4625 ml Output Total 2590 ml Balance 2035 ml Laboratory Data Labs 24H Laboratory Tests 2 06/12/19 13:01: Nucleated Red Blood Cells % (auto) 0.0, Anion Gap 7L, Glomerular Filtration Rate > 60.0, Calcium Level 8.7L 06/12/19 13:03: Bedside Glucose (Misc Panel) 163H 06/13/19 06:17: Nucleated Red Blood Cells % (auto) 0.0, Anion Gap 6L, Glomerular Filtration Rate > 60.0, Calcium Level 8.8 CBC/BMP Laboratory Tests 06/12/19 13:01 06/13/19 06:17 FSBS Laboratory Tests Test 06/12/19 13:03 Range/Units Bedside Glucose (Misc Panel) 163 80-115 MG/DL Assessment/Plan Date Seen The patient was seen on 06/13/19. Patient Summary This is a 64 y/o F POD1 s/p left robotic partial nephrectomy. She is doing well. Hb is stable at 11.9. Cr is stable at 0.8. Good UOP. Plan/VTE VTE Prophylaxis Ordered?: Yes VTE Exclusion Mechanical Proph: N/A:VTE Prophy Ordered Plan/Urinary Catheter Urinary Catheter: D/C Cowart Plan - d/c Cowart - d/c IVF - strict I/Os - SCDs when in bed - ambulate - incentive spirometry - advance diet as tolerated - possible discharge home later today BARRERA PEREZ MD Jun 13, 2019 07:48
[2019-06-13] MEDS ORDERED: LevoFLOXacin IV 250 MG in IV 1 EA IV ONE (08:00)
[2019-06-13] MEDS ORDERED: LevoFLOXacin IV 500 MG in IV 1 EA IV ONE (08:00)
[2019-06-13] MEDS: DOCUSATE SODIUM 100 MG CAP PO SCH ×2 (09:00→20:16)
[2019-06-13] MEDS: PERCOCET 5MG/325MG TAB PO PRN ×3 (10:26→20:15)
[2019-06-13] MEDS: LOSARTAN 50 MG TAB PO SCH (20:15)
[2019-06-13] MEDS: SIMVASTATIN 40 MG TAB PO SCH (20:15)
[2019-06-13] MEDS: OMEPRAZOLE 20 MG CAP PO SCH (20:16)
[2019-06-13] MEDS: ACETAMINOPHEN TAB 650MG DOSE (2X325MG) PO PRN (23:47)
[2019-06-14] MEDS: ACETAMINOPHEN TAB 650MG DOSE (2X325MG) PO PRN (04:33)
[2019-06-14 06:00] VITALS: BP 147/77
[2019-06-14 06:27] LABS: HEMATOCRIT 34.5 % (36.0-47.0); HEMOGLOBIN 11.1 g/dl (12.0-15.5); MEAN CORPUSCULAR HEMOGLOBIN 30.3 pg (27.0-33.0); MEAN CORPUSCULAR HGB CONC 32.2 g/dl (32.0-36.5); MEAN CORPUSCULAR VOLUME 94.3 fl (80.0-96.0); PLATELET COUNT, AUTOMATED 229 10^3/uL (150-450); RED BLOOD COUNT 3.66 10^6/uL (4.00-5.40); WHITE BLOOD COUNT 9.8 10^3/uL (4.0-10.0)
[2019-06-14 06:51] LABS: BLOOD UREA NITROGEN 13 MG/DL (7-18); CALCIUM LEVEL 8.1 MG/DL (8.8-10.2); CARBON DIOXIDE LEVEL 27 MEQ/L (21-32); CHLORIDE LEVEL 111 MEQ/L (98-107); CREATININE FOR GFR 0.84 MG/DL (0.55-1.30); GLOMERULAR FILTRATION RATE > 60.0 (>45); GLUCOSE, FASTING 118 MG/DL (70-100); POTASSIUM SERUM 3.6 MEQ/L (3.5-5.1); SODIUM LEVEL 142 MEQ/L (136-145)
--- NOTE | 2019-06-14 07:29 | IPNPDOC ---
Subjective Review oF Systems Chief Complaint The patient is a 64-year-old female admitted with a reason for visit of Renal Mass. Events since Last Encounter No acute events o/n. Still having gas pains, but better than the previous night. Passing flatus. No n/v. Ambulating well. Tolerating regular diet. No f/c/ns. Objective Physical Examination General Exam: Alert, Cooperative, No Acute Distress ABDOMEN EXAM: Soft, Tenderness (mild), Other (incisions clean/dry/intact; ELOINA w/ serous output) Skin Exam: Nl turgor and temperature Neuro Exam: Normal Speech Psych Exam: Mental status NL, Mood NL Vital Signs/I&O Vital Signs Date Time Temp Pulse Resp B/P (MAP) Pulse Ox O2 Delivery O2 Flow Rate FiO2 06/14/19 06:00 97.9 75 18 147/77 (100) 96 06/13/19 21:22 Room Air 06/12/19 18:00 I&O- Last 24 Hours up to 6 AM 06/14/19 06:00 Intake Total 1955 ml Output Total 1603 ml Balance 352 ml Laboratory Data Labs 24H Laboratory Tests 2 06/14/19 06:00: Anion Gap 4L, Glomerular Filtration Rate > 60.0, Calcium Level 8.1L 06/14/19 06:01: Nucleated Red Blood Cells % (auto) 0.0 CBC/BMP Laboratory Tests 06/14/19 06:00 06/14/19 06:01 Assessment/Plan Date Seen The patient was seen on 06/14/19. Patient Summary This is a 64 y/o F POD2 s/p left robotic partial nephrectomy. Hb is stable at 11.1. Cr is stable at 0.8. Good UOP. Plan/VTE VTE Prophylaxis Ordered?: Yes VTE Exclusion Mechanical Proph: N/A:VTE Prophy Ordered Plan - percocet prn pain - cont home meds - d/c ELOINA drain - strict I/Os - may shower today - SCDs when in bed - ambulate - incentive spirometry - regular diet - discharge home today BARRERA PEREZ MD Jun 14, 2019 07:29
[2019-06-14] MEDS ORDERED: PERCOCET PO (07:36)
[2019-06-14] MEDS ORDERED: DOCU100C16 PO (07:36)
[2019-06-14] MEDS: DOCUSATE SODIUM 100 MG CAP PO SCH (09:17)
--- NOTE | 2019-06-14 15:36 | DSES ---
DATE OF ADMISSION: 06/12/2019 DATE OF DISCHARGE: 06/14/2019 ADMISSION DIAGNOSIS: Left renal neoplasm. DISCHARGE DIAGNOSIS: Left renal neoplasm. ADMITTING PHYSICIAN: Dr. David Alvarado DISCHARGING PHYSICIAN: Dr. David Alvarado. PROCEDURES PERFORMED: Left robotic assisted laparoscopic partial nephrectomy on 06/12/2019. HOSPITALIZATION COURSE: The patient was admitted to the hospital after undergoing the above listed procedure. Her postoperative course was unremarkable. On postoperative day one her main complaint was gas pain. She was ambulating well. Due to persistent gas pain, she was not discharged home on postoperative day one. Her catheter was removed and she voided without difficulty. Her laboratories throughout her hospital stay were notable for a stable hemoglobin level and a creatinine that was stable at 0.8. Her urine output was excellent. By postoperative day two, her pain was better controlled. Her Emory-Messer drain had minimal output and therefore it was removed on postoperative day two. Since her pain was better controlled, she was tolerating a regular diet, she was deemed ready for discharge home on postoperative day two. She was discharged home on postoperative day two with a plan for her to followup in the clinic in a few weeks to discuss her pathology results.
== END 2019-06-14 09:27 | disposition home or self-care (01) | DRG 443 ==
LOC: M OR 06:05 → M MSPAV 13:58
PROVIDERS: ADMIT Urology; ATTEND Urology
PROC: 8E0W4CZ Robotic Assisted Procedure of Trunk Region, Percutaneous Endoscopic Approach (ICD-10-PCS; 2019-06-12)
PROC: 0TB14ZZ Excision of Left Kidney, Percutaneous Endoscopic Approach (ICD-10-PCS; principal; 2019-06-12 07:30)
DX: D41.02 Neoplasm of uncertain behavior of left kidney (principal); I10 Essential (primary) hypertension; E11.9 Type 2 diabetes mellitus without complications; K21.9 Gastro-esophageal reflux disease without esophagitis; Z88.0 Allergy status to penicillin; Z88.8 Allergy status to other drugs, medicaments and biological substances; Z79.899 Other long term (current) drug therapy; K58.1 Irritable bowel syndrome with constipation; G43.909 Migraine, unspecified, not intractable, without status migrainosus; K44.9 Diaphragmatic hernia without obstruction or gangrene; M85.80 Other specified disorders of bone density and structure, unspecified site; E78.00 Pure hypercholesterolemia, unspecified

== ENCOUNTER → 2019-06-28 | Outpatient (CLI) | payer BC ==
[~2019-06-28] MED LIST changes: +DOCU100C16 PO; -LR 1,000 ML IV ONE; -LevoFLOXacin IV 500 MG in IV 1 EA IV ONE; +PERCOCET PO
[2019-06-28 12:40] LABS: HEMATOCRIT 38.6 % (36.0-47.0); HEMOGLOBIN 12.1 g/dl (12.0-15.5); MEAN CORPUSCULAR HGB CONC 31.3 g/dl (32.0-36.5); MEAN CORPUSCULAR VOLUME 92.6 fl (80.0-96.0); PLATELET COUNT, AUTOMATED 443 10^3/uL (150-450); RED BLOOD COUNT 4.17 10^6/uL (4.00-5.40); WHITE BLOOD COUNT 6.2 10^3/uL (4.0-10.0)
[2019-06-28 12:42] LABS: BLOOD UREA NITROGEN 20 MG/DL (7-18); CALCIUM LEVEL 10.2 MG/DL (8.8-10.2); CARBON DIOXIDE LEVEL 29 MEQ/L (21-32); CHLORIDE LEVEL 105 MEQ/L (98-107); CREATININE FOR GFR 0.79 MG/DL (0.55-1.30); GLOMERULAR FILTRATION RATE > 60.0 (>45); GLUCOSE, FASTING 112 MG/DL (70-100); POTASSIUM SERUM 4.5 MEQ/L (3.5-5.1); SODIUM LEVEL 140 MEQ/L (136-145)
== END ==
LOC: M WUC 09:33
PROVIDERS: ATTEND Urology
DX: Z09 Encounter for follow-up examination after completed treatment for conditions other than malignant neoplasm (principal); C64.2 Malignant neoplasm of left kidney, except renal pelvis

== ENCOUNTER → 2019-08-30 | Outpatient (REF) | payer BC ==
[2019-08-30 12:16] LABS: HEMOGLOBIN A1c 6.9 %
[2019-08-30 12:35] LABS: CREATININE, URINE 33.5 MG/DL; MALB URINE SIEMENS 6.6 MG/L; MAU/CREAT RATIO 19.7 MCG/MG (0.0-30.0)
== END ==
LOC: M SFHCCLAY 08:01
PROVIDERS: ATTEND Nurse Practitioner Family
DX: E11.8 Type 2 diabetes mellitus with unspecified complications (principal)

== ENCOUNTER → 2020-01-06 | Outpatient (CLI) | payer BC ==
[2020-01-06 08:32] LABS: HEMATOCRIT 39.1 % (36.0-47.0); HEMOGLOBIN 12.9 g/dl (12.0-15.5); MEAN CORPUSCULAR HEMOGLOBIN 30.1 pg (27.0-33.0); MEAN CORPUSCULAR VOLUME 91.4 fl (80.0-96.0); PLATELET COUNT, AUTOMATED 279 10^3/uL (150-450); RED BLOOD COUNT 4.28 10^6/uL (4.00-5.40); WHITE BLOOD COUNT 6.4 10^3/uL (4.0-10.0)
[2020-01-06 08:54] LABS: CHOLESTEROL RISK RATIO 2.95 (<5)
[2020-01-06 10:01] LABS: TOTAL 25(OH) VITAMIN D 42.6 NG/ML (30.0-100.0)
[2020-01-06 10:43] LABS: HEMOGLOBIN A1c 6.8 %
== END ==
LOC: M LAB 07:34
PROVIDERS: ATTEND Nurse Practitioner Family
DX: E11.8 Type 2 diabetes mellitus with unspecified complications (principal); E78.5 Hyperlipidemia, unspecified; E55.9 Vitamin D deficiency, unspecified; K21.9 Gastro-esophageal reflux disease without esophagitis

== ENCOUNTER → 2020-02-13 | Outpatient (CLI) | payer BC ==
[2020-02-13 08:39] LABS: BLOOD UREA NITROGEN 24 MG/DL (7-18); CALCIUM LEVEL 9.7 MG/DL (8.8-10.2); CARBON DIOXIDE LEVEL 29 MEQ/L (21-32); CHLORIDE LEVEL 104 MEQ/L (98-107); GLOMERULAR FILTRATION RATE > 60.0 (>45); GLUCOSE, FASTING 115 MG/DL (70-100); POTASSIUM SERUM 4.1 MEQ/L (3.5-5.1); SODIUM LEVEL 140 MEQ/L (136-145)
== END ==
LOC: M LAB 07:38
PROVIDERS: ATTEND Urology
DX: C64.2 Malignant neoplasm of left kidney, except renal pelvis (principal)

== ENCOUNTER → 2020-02-17 | Outpatient (CLI) | payer BC ==
[~2020-02-17] MED LIST changes: +ISOVUE-370 76% 100ML VIAL As Ordered ONE
--- NOTE | 2020-02-18 02:57 | REP ---
REASON: History of renal cell carcinoma. COMPARISON: 04/11/2019 CONTRAST: 100 mL Isovue-370. There is no change in the lung bases. The liver, gallbladder, spleen, pancreas, adrenal glands, and right kidney are again seen to be within normal limits. The previously present left renal mass has been surgically excised. There is renal cortical irregularity and scarring, suggested at the surgical site. The abdominal aorta and para-aortic regions are within normal limits. No para-aortic adenopathy has developed. The bowel loops and their mesenteries are within normal limits. There is no free fluid or free air in the abdomen. No intra-abdominal mass has developed. Bone window technique throughout the examination shows the osseous structures to be stable and intact. IMPRESSION: Findings involving the left kidney most consistent with postoperative changes. There is no definite CT evidence of recurrent or acute disease. Findings as described above. Electronically Signed by Nikhil Cruz DO 02/18/2020 11:35 A
== END ==
LOC: M RAD 14:00
PROVIDERS: ATTEND Urology
DX: C64.2 Malignant neoplasm of left kidney, except renal pelvis (principal)
CPT/HCPCS: 74160; Q9967

== ENCOUNTER → 2020-04-06 | Outpatient (REF) | payer BC ==
[~2020-04-06] MED LIST changes: -ISOVUE-370 76% 100ML VIAL As Ordered ONE
[2020-04-06 11:05] LABS: HEMATOCRIT 39.9 % (36.0-47.0); HEMOGLOBIN 13.2 g/dl (12.0-15.5); MEAN CORPUSCULAR HEMOGLOBIN 30.9 pg (27.0-33.0); MEAN CORPUSCULAR HGB CONC 33.1 g/dl (32.0-36.5); MEAN CORPUSCULAR VOLUME 93.4 fl (80.0-96.0); PLATELET COUNT, AUTOMATED 287 10^3/uL (150-450); RED BLOOD COUNT 4.27 10^6/uL (4.00-5.40); WHITE BLOOD COUNT 5.7 10^3/uL (4.0-10.0)
[2020-04-06 11:29] LABS: ALBUMIN 4.2 GM/DL (3.2-5.2); ALT/SGPT 21 U/L (12-78); BILIRUBIN,TOTAL 0.3 MG/DL (0.2-1.0); BLOOD UREA NITROGEN 14 MG/DL (7-18); CALCIUM LEVEL 9.5 MG/DL (8.8-10.2); CARBON DIOXIDE LEVEL 28 MEQ/L (21-32); CHLORIDE LEVEL 104 MEQ/L (98-107); CHOLESTEROL LEVEL 171 MG/DL (<200); CHOLESTEROL RISK RATIO 3.288 (<5); CREATININE FOR GFR 0.84 MG/DL (0.55-1.30); GLOMERULAR FILTRATION RATE > 60.0 (>45); GLUCOSE, FASTING 115 MG/DL (70-100); HDL CHOLESTEROL 52 MG/DL (>40); LDL CHOLESTEROL 94 MG/DL (<100); NON-HDL-C 119 MG/DL; SODIUM LEVEL 140 MEQ/L (136-145); TOTAL PROTEIN 7.7 GM/DL (6.4-8.2); TRIGLYCERIDES LEVEL 124 MG/DL (<150)
[2020-04-06 12:33] LABS: TOTAL 25(OH) VITAMIN D 37.2 NG/ML (30.0-100.0)
[2020-04-06 12:50] LABS: HEMOGLOBIN A1c 6.3 %
== END ==
LOC: M SFHCCLAY 08:31
PROVIDERS: ATTEND Nurse Practitioner Family
DX: I10 Essential (primary) hypertension (principal); E78.5 Hyperlipidemia, unspecified

== ENCOUNTER → 2020-04-07 | Outpatient (REF) | payer BC ==
[2020-04-07 14:15] LABS: CREATININE, URINE 24.9 MG/DL; MALB URINE SIEMENS < 5.0 MG/L
== END ==
LOC: M LABDRWAD 07:50
PROVIDERS: ATTEND Nurse Practitioner Family
DX: I10 Essential (primary) hypertension (principal); E78.5 Hyperlipidemia, unspecified; E11.9 Type 2 diabetes mellitus without complications; E55.9 Vitamin D deficiency, unspecified

== ENCOUNTER → 2020-07-06 | Outpatient (CLI) | payer BC ==
[2020-07-06 08:57] LABS: HEMATOCRIT 39.1 % (36.0-47.0); HEMOGLOBIN 12.6 g/dl (12.0-15.5); MEAN CORPUSCULAR HEMOGLOBIN 29.9 pg (27.0-33.0); MEAN CORPUSCULAR HGB CONC 32.2 g/dl (32.0-36.5); MEAN CORPUSCULAR VOLUME 92.7 fl (80.0-96.0); PLATELET COUNT, AUTOMATED 282 10^3/uL (150-450); RED BLOOD COUNT 4.22 10^6/uL (4.00-5.40); WHITE BLOOD COUNT 6.7 10^3/uL (4.0-10.0)
[2020-07-06 09:22] LABS: CHOLESTEROL RISK RATIO 2.632 (<5)
[2020-07-06 10:07] LABS: HEMOGLOBIN A1c 6.5 %
[2020-07-06 10:30] LABS: TOTAL 25(OH) VITAMIN D 36.9 NG/ML (30.0-100.0)
== END ==
LOC: M LAB 07:38
PROVIDERS: ATTEND Nurse Practitioner Family
DX: E11.8 Type 2 diabetes mellitus with unspecified complications (principal); E78.5 Hyperlipidemia, unspecified; E55.9 Vitamin D deficiency, unspecified; K21.9 Gastro-esophageal reflux disease without esophagitis

== ENCOUNTER → 2020-08-20 | Outpatient (CLI) | payer BC ==
--- NOTE | 2020-08-20 17:18 | REP ---
INDICATION: BRANDYN PRIMARY OA OF KNEE. COMPARISON: None. TECHNIQUE: Multiple sequences obtained in the axial, coronal and sagittal planes. FINDINGS: Menisci: Intact, no tear. Cruciate ligaments: There is increased signal on T2 weighted images involving the anterior cruciate ligament suggesting a sprain or partial tear. The posterior cruciate ligament is intact. Collateral ligaments: Intact. Extensor mechanism/patellar retinacula: Intact. Cartilage: There is moderate diffuse chondromalacia of the patella. There is mild to moderate diffuse chondromalacia of the lateral femoral condyle and tibial plateau. There is moderately severe diffuse chondromalacia of the medial femoral condyle and tibial plateau. Bone marrow: Mild subchondral marrow edema in the medial femoral condyle and tibial plateau. There is spurring of the femoral condyles. Joint fluid: There is a moderate joint effusion. Popliteal region: Small amount of fluid extends into the inferolateral popliteal fossa. IMPRESSION: Increased signal involving the anterior cruciate ligament without complete disruption of the ligament suggests sprain or partial tear. 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 No meniscal tear. Moderate joint effusion. <Electronically signed by Willi Martin > 08/20/20 [id number]
== END ==
LOC: M RAD 15:03
PROVIDERS: ATTEND Physician Assistant Surgical
DX: M17.11 Unilateral primary osteoarthritis, right knee (principal); R93.6 Abnormal findings on diagnostic imaging of limbs

== ENCOUNTER → 2021-02-09 | Outpatient (CLI) | payer BC ==
[~2021-02-09] MED LIST changes: +OMEP40CA4 PO; -OMEP40CA97 PO
[2021-02-09 10:01] LABS: BLOOD UREA NITROGEN 18 MG/DL (7-18); CALCIUM LEVEL 10.6 MG/DL (8.8-10.2); CARBON DIOXIDE LEVEL 29 MEQ/L (21-32); CHLORIDE LEVEL 105 MEQ/L (98-107); CREATININE FOR GFR 0.76 MG/DL (0.55-1.30); GLOMERULAR FILTRATION RATE > 60.0 (>45); GLUCOSE, FASTING 128 MG/DL (70-100); POTASSIUM SERUM 4.4 MEQ/L (3.5-5.1); SODIUM LEVEL 141 MEQ/L (136-145)
== END ==
LOC: M LAB 08:35
PROVIDERS: ATTEND Urology
DX: C64.2 Malignant neoplasm of left kidney, except renal pelvis (principal)

== ENCOUNTER → 2021-02-15 | Outpatient (CLI) | payer BC ==
[~2021-02-15] MED LIST changes: +ISOVUE-370 76% 100ML VIAL As Ordered ONE
--- NOTE | 2021-02-15 23:41 | REP ---
INDICATION: RENAL CELL CA, LT KIDNEY COMPARISON: 02/17/2020 TECHNIQUE: Axial contrast-enhanced images of the abdomen using 100 cc Isovue 370 intravenous contrast material with coronal and sagittal reformations. Delayed images of the abdomen obtained. This CT examination was performed using the following dose reduction techniques: Automated exposure control, adjustment of mA and/or kv according to the patient's size, and use of iterative reconstruction technique. FINDINGS: Lung bases are clear. Visualized heart and pericardium normal. Liver, spleen, pancreas, gallbladder, bilateral adrenal glands and right kidney are normal. Left kidney demonstrates partial nephrectomy and no evidence for recurrence or metastatic disease. The visualized enteric system is unremarkable and without obstruction or acute inflammatory process. No ascites. No free air. No adenopathy. No focal inflammatory stranding. Abdominal aorta without aneurysm. Musculoskeletal structures are intact and without acute osseous abnormality. IMPRESSION: No acute abdominopelvic pathology appreciated. Evidence for prior left partial nephrectomy. No metastatic disease or recurrence appreciated. <Electronically signed by Matt Looney > 02/15/21 [id number]
== END ==
LOC: M RAD 13:02
PROVIDERS: ATTEND Urology
DX: C64.2 Malignant neoplasm of left kidney, except renal pelvis (principal)
CPT/HCPCS: 74160; Q9967

== ENCOUNTER → 2021-02-23 | Outpatient (REF) | payer BC ==
[~2021-02-23] MED LIST changes: -ISOVUE-370 76% 100ML VIAL As Ordered ONE
[2021-02-24 14:13] LABS: MALB URINE SIEMENS 11.5 MG/L
[2021-02-24 14:23] LABS: HEMOGLOBIN A1c 6.3 %
== END ==
LOC: M SFHCCLAY 15:17
PROVIDERS: ATTEND Family Medicine
DX: E11.9 Type 2 diabetes mellitus without complications (principal)

== ENCOUNTER → 2021-05-04 | Outpatient (CLI) | payer BC ==
--- NOTE | 2021-05-04 15:35 | REPMRS ---
Patient History The patient states she had a clinical breast exam in April 2021. Patient is postmenopausal and has history of other cancer at age 64. Family history of ovarian cancer in sister. Benign excisional biopsy of the right breast, 1978. Patient states no breast complaints today. Patient has signed MRS History Sheet. Digital Woman Screen Mammo: May 04, 2021 - Exam #: [id number] Bilateral CC and MLO view(s) were taken. Technologist: Mounika Mo, Technologist Prior study comparison: July 20, 2017, digital woman screen mammo performed at [facility] and [facility]. April 05, 2016, bilateral digital mammo screening bilat, performed at [facility]. FINDINGS: There are scattered fibroglandular densities. Screening. Digital screening (2D) mammography was performed bilaterally in the CC and MLO projections. Additionally, breast tomosynthesis (3D mammography) was performed bilaterally in the CC and MLO projections. Todays exam was compared to the prior exam/exams. By history, the patient has no complaints of a palpable breast abnormality or other significant breast complaints. The breasts are unchanged in size and shape. Once again, stable benign appearing calcifications are seen.There are no oliver-soft tissue densities or spiculated masses. There is no internal architectural distortion. There are no suspicious oliver-calcific clusters. Skin thickening or nipple retraction is not present. IMPRESSION: BI-RADS Category 2- Benign Findings. There is no evidence of malignant alteration of the breasts. Followup examination recommended in one year. The Volpara volumetric breast density category is B, there are scattered areas of fibroglandular densities. This mammogram was read with the assistance of [facility] [employer],an FDA approved computer aided detection system for mammography. The lifetime Tyrer-Cuzick score is 4.7 % Negative x-ray reports should not delay surgical consultation if a dominant or clinically suspicious mass is present. Not all breast cancers can be identified by mammography. Therefore, we recommend that you continue to perform regular breast self-examination and physical examination and then promptly contact your physician of any concerns or changes. Adenosis and dense breasts may obscure an underlying neoplasm. Assessment: BI-RADS/ACR category 2 mammogram. Benign Findings. Recommendation Routine screening mammogram of both breasts in 1 year. Electronically Signed By: Nikhil Cruz DO 05/04/21 [id number]
== END ==
LOC: M WHC 14:10
PROVIDERS: ATTEND Family Medicine
DX: Z12.31 Encounter for screening mammogram for malignant neoplasm of breast (principal); Z78.0 Asymptomatic menopausal state

== ENCOUNTER → 2021-05-12 | Outpatient (REF) | payer BC | LOC: M WUC 19:33 | PROVIDERS: ATTEND Physician Assistant | DX: R30.0 Dysuria (principal) ==

== ENCOUNTER → 2021-11-16 | Outpatient (REF) | payer OTHER ==
[~2021-11-16] MED LIST changes: +LOSA50TA28 PO; -LOSA50TA88 PO
[2021-11-16 12:33] LABS: BLOOD UREA NITROGEN 19 MG/DL (7-18); CALCIUM LEVEL 9.8 MG/DL (8.8-10.2); CARBON DIOXIDE LEVEL 27 MEQ/L (21-32); CHLORIDE LEVEL 108 MEQ/L (98-107); CHOLESTEROL LEVEL 203 MG/DL (<200); CHOLESTEROL RISK RATIO 3.561 (<5); CREATININE FOR GFR 0.76 MG/DL (0.55-1.30); GLOMERULAR FILTRATION RATE > 60.0 (>45); GLUCOSE, FASTING 118 MG/DL (70-100); HDL CHOLESTEROL 57 MG/DL (>40); LDL CHOLESTEROL 123 MG/DL (<100); NON-HDL-C 146 MG/DL; POTASSIUM SERUM 4.3 MEQ/L (3.5-5.1); SODIUM LEVEL 143 MEQ/L (136-145); TRIGLYCERIDES LEVEL 113 MG/DL (<150)
[2021-11-16 13:13] LABS: HEMOGLOBIN A1c 6.2 %
== END ==
LOC: M SFHCCLAY 07:47
PROVIDERS: ATTEND Family Medicine
DX: E11.9 Type 2 diabetes mellitus without complications (principal); I11.9 Hypertensive heart disease without heart failure; E78.5 Hyperlipidemia, unspecified

== ENCOUNTER → 2022-01-21 | Outpatient (REF) | payer MEDICARE ==
[2022-01-21 11:32] LABS: HEMOGLOBIN 13.8 g/dl (12.0-15.5); MEAN CORPUSCULAR HEMOGLOBIN 30.9 pg (27.0-33.0); MEAN CORPUSCULAR HGB CONC 33.7 g/dl (32.0-36.5); MEAN CORPUSCULAR VOLUME 91.9 fl (80.0-96.0); PLATELET COUNT, AUTOMATED 279 10^3/uL (150-450); RED BLOOD COUNT 4.46 10^6/uL (4.00-5.40)
[2022-01-21 11:49] LABS: INR 0.88; PROTHROMBIN TIME 12.3 SECONDS (12.7-14.5)
[2022-01-21 12:01] LABS: ERYTHROCYTE SEDIMENTATION RATE 13 mm/hr (0-30)
[2022-01-21 12:04] LABS: ALBUMIN 3.9 GM/DL (3.2-5.2); ALT/SGPT 24 U/L (12-78); BILIRUBIN,TOTAL 0.4 MG/DL (0.2-1.0); BLOOD UREA NITROGEN 15 MG/DL (7-18); CALCIUM LEVEL 9.3 MG/DL (8.8-10.2); CARBON DIOXIDE LEVEL 28 MEQ/L (21-32); CHLORIDE LEVEL 105 MEQ/L (98-107); CREATININE FOR GFR 0.74 MG/DL (0.55-1.30); GLOMERULAR FILTRATION RATE > 60.0 (>45); GLUCOSE, FASTING 114 MG/DL (70-100); POTASSIUM SERUM 4.1 MEQ/L (3.5-5.1); SODIUM LEVEL 140 MEQ/L (136-145); TOTAL PROTEIN 7.2 GM/DL (6.4-8.2)
== END ==
LOC: M LABDRAWC 11:11
PROVIDERS: ATTEND Orthopaedic Surgery
DX: Z01.818 Encounter for other preprocedural examination (principal); M17.11 Unilateral primary osteoarthritis, right knee

== ENCOUNTER → 2022-01-21 | Outpatient (CLI) | payer MEDICARE | LOC: M CLY 08:49 | PROVIDERS: ATTEND Orthopaedic Surgery | DX: Z01.818 Encounter for other preprocedural examination (principal); M17.11 Unilateral primary osteoarthritis, right knee ==

== ENCOUNTER → 2022-02-24 | Outpatient (REF) | payer MEDICARE | LOC: M SFHCCLAY 15:24 | PROVIDERS: ATTEND Family Medicine | DX: B07.9 Viral wart, unspecified (principal) ==

== ENCOUNTER → 2022-05-09 | Outpatient (REF) | payer MEDICARE ==
[2022-05-09 17:34] LABS: HEMATOCRIT 41.5 % (36.0-47.0); HEMOGLOBIN 13.4 g/dl (12.0-15.5); MEAN CORPUSCULAR HEMOGLOBIN 30.2 pg (27.0-33.0); MEAN CORPUSCULAR HGB CONC 32.3 g/dl (32.0-36.5); MEAN CORPUSCULAR VOLUME 93.7 fl (80.0-96.0); PLATELET COUNT, AUTOMATED 295 10^3/uL (150-450); RED BLOOD COUNT 4.43 10^6/uL (4.00-5.40)
[2022-05-09 18:07] LABS: ALBUMIN 4.1 GM/DL (3.2-5.2); ALT/SGPT 33 U/L (12-78); BILIRUBIN,TOTAL 0.3 MG/DL (0.2-1.0); BLOOD UREA NITROGEN 16 MG/DL (7-18); CARBON DIOXIDE LEVEL 30 MEQ/L (21-32); CHLORIDE LEVEL 103 MEQ/L (98-107); CHOLESTEROL LEVEL 195 MG/DL (<200); CHOLESTEROL RISK RATIO 3.421 (<5); CREATININE FOR GFR 0.81 MG/DL (0.55-1.30); GLOMERULAR FILTRATION RATE > 60.0 (>45); GLUCOSE, FASTING 131 MG/DL (70-100); HDL CHOLESTEROL 57 MG/DL (>40); LDL CHOLESTEROL 118 MG/DL (<100); NON-HDL-C 138 MG/DL; POTASSIUM SERUM 4.5 MEQ/L (3.5-5.1); SODIUM LEVEL 137 MEQ/L (136-145); TOTAL PROTEIN 7.8 GM/DL (6.4-8.2); TRIGLYCERIDES LEVEL 99 MG/DL (<150)
[2022-05-09 18:17] LABS: HEMOGLOBIN A1c 6.3 %
== END ==
LOC: M SFHCCLAY 09:53
PROVIDERS: ATTEND Nurse Practitioner Family
DX: I11.9 Hypertensive heart disease without heart failure (principal); E11.9 Type 2 diabetes mellitus without complications; E78.5 Hyperlipidemia, unspecified

== ENCOUNTER → 2022-05-17 | Outpatient (CLI) | payer MEDICARE ==
[~2022-05-17] MED LIST changes: +ISOVUE-370 76% 100ML VIAL As Ordered ONE
== END ==
LOC: M RAD 08:03
PROVIDERS: ATTEND Urology
DX: C64.2 Malignant neoplasm of left kidney, except renal pelvis (principal)
CPT/HCPCS: 74170; Q9967

== ENCOUNTER → 2022-12-20 | Outpatient (REF) | payer MEDICARE ==
[~2022-12-20] MED LIST changes: -ISOVUE-370 76% 100ML VIAL As Ordered ONE; +SIMV-254 PO; -ZOCO40TA PO
[2022-12-20 12:32] LABS: HEMOGLOBIN A1c 6.1 % (4.0-6.0)
[2022-12-20 12:34] LABS: ALBUMIN 3.9 G/DL (3.2-5.2); ALKALINE PHOSPHATASE 76 U/L (46-116); ALT/SGPT 13 U/L (7.0-40); AST/SGOT 19 U/L (<34); BILIRUBIN,TOTAL 0.6 MG/DL (0.3-1.2); BLOOD UREA NITROGEN 18 MG/DL (9-23); CALCIUM LEVEL 9.4 MG/DL (8.3-10.6); CARBON DIOXIDE LEVEL 28 MMOL/L (20-31); CHLORIDE LEVEL 105 MMOL/L (98-107); CHOLESTEROL LEVEL 173 MG/DL (<200); CHOLESTEROL RISK RATIO 2.79 (<5); CREATININE FOR GFR 0.67 MG/DL (0.55-1.30); GLOMERULAR FILTRATION RATE > 60.0 (>45); GLUCOSE, FASTING 103 MG/DL (74-106); HDL CHOLESTEROL 61.8 MG/DL (>40); NON-HDL-C 111.2 MG/DL; POTASSIUM SERUM 4.3 MMOL/L (3.5-5.1); SODIUM LEVEL 139 MMOL/L (136-145); TOTAL PROTEIN 6.9 G/DL (5.7-8.2); TRIGLYCERIDES LEVEL 121 MG/DL (<150)
== END ==
LOC: M SFHCCLAY 08:51
PROVIDERS: ATTEND Nurse Practitioner Family
DX: M17.11 Unilateral primary osteoarthritis, right knee (principal); I11.9 Hypertensive heart disease without heart failure; E11.9 Type 2 diabetes mellitus without complications; E78.5 Hyperlipidemia, unspecified; K21.9 Gastro-esophageal reflux disease without esophagitis; Z85.528 Personal history of other malignant neoplasm of kidney

== ENCOUNTER → 2023-03-27 | Outpatient (CLI) | payer OTHER | LOC: M WHC 08:07 | PROVIDERS: ATTEND Nurse Practitioner Family | DX: Z12.31 Encounter for screening mammogram for malignant neoplasm of breast (principal) ==

== ENCOUNTER → 2023-04-04 | Outpatient (REF) | payer OTHER ==
[2023-04-04 18:51] LABS: BLOOD UREA NITROGEN 15 MG/DL (9-23); CALCIUM LEVEL 9.2 MG/DL (8.3-10.6); CARBON DIOXIDE LEVEL 23 MMOL/L (20-31); CHLORIDE LEVEL 103 MMOL/L (98-107); CREATININE FOR GFR 0.65 MG/DL (0.55-1.30); GLOMERULAR FILTRATION RATE > 60.0 (>45); GLUCOSE, FASTING 229 MG/DL (74-106); POTASSIUM SERUM 3.6 MMOL/L (3.5-5.1); SODIUM LEVEL 139 MMOL/L (136-145)
== END ==
LOC: M SFHCCLAY 14:54
PROVIDERS: ATTEND Urology
DX: C64.2 Malignant neoplasm of left kidney, except renal pelvis (principal)

== ENCOUNTER → 2023-04-19 | Outpatient (CLI) | payer OTHER ==
[~2023-04-19] MED LIST changes: +ISOVUE-370 76% 100ML VIAL As Ordered ONE
== END ==
LOC: M RAD 09:21
PROVIDERS: ATTEND Urology
DX: C64.2 Malignant neoplasm of left kidney, except renal pelvis (principal); J84.10 Pulmonary fibrosis, unspecified; K57.90 Diverticulosis of intestine, part unspecified, without perforation or abscess without bleeding; K76.0 Fatty (change of) liver, not elsewhere classified
CPT/HCPCS: 71046; 74170; Q9967

== ENCOUNTER → 2023-05-04 | Outpatient (REF) | payer OTHER ==
[~2023-05-04] MED LIST changes: -ISOVUE-370 76% 100ML VIAL As Ordered ONE
[2023-05-04 18:57] LABS: HEMOGLOBIN A1c 6.2 % (4.0-6.0)
== END ==
LOC: M SFHCCLAY 14:51
PROVIDERS: ATTEND Nurse Practitioner Family
DX: E11.8 Type 2 diabetes mellitus with unspecified complications (principal)

== ENCOUNTER → 2023-11-20 | Outpatient (REF) | payer OTHER ==
[2023-11-20 13:21] LABS: ALBUMIN 4.1 G/DL (3.2-5.2); ALKALINE PHOSPHATASE 85 U/L (46-116); ALT/SGPT 25 U/L (7.0-40); AST/SGOT 18 U/L (<34); BILIRUBIN,TOTAL 0.5 MG/DL (0.3-1.2); BLOOD UREA NITROGEN 18 MG/DL (9-23); CALCIUM LEVEL 9.3 MG/DL (8.3-10.6); CARBON DIOXIDE LEVEL 30 MMOL/L (20-31); CHLORIDE LEVEL 105 MMOL/L (98-107); CHOLESTEROL LEVEL 168 MG/DL (<200); CHOLESTEROL RISK RATIO 2.69 (<5); CREATININE FOR GFR 0.65 MG/DL (0.55-1.30); GLOMERULAR FILTRATION RATE > 60.0 (>45); GLUCOSE, FASTING 127 MG/DL (74-106); HDL CHOLESTEROL 62.3 MG/DL (>40); LDL CHOLESTEROL 83.7 MG/DL (<100); NON-HDL-C 105.7 MG/DL; POTASSIUM SERUM 4.2 MMOL/L (3.5-5.1); SODIUM LEVEL 139 MMOL/L (136-145); TOTAL PROTEIN 7.1 G/DL (5.7-8.2); TRIGLYCERIDES LEVEL 110 MG/DL (<150)
[2023-11-20 13:29] LABS: HEMOGLOBIN A1c 5.9 % (4.0-6.0)
== END ==
LOC: M SFHCCLAY 08:34
PROVIDERS: ATTEND Nurse Practitioner Family
DX: J30.9 Allergic rhinitis, unspecified (principal); E11.8 Type 2 diabetes mellitus with unspecified complications; I10 Essential (primary) hypertension; K21.9 Gastro-esophageal reflux disease without esophagitis; E78.5 Hyperlipidemia, unspecified; Z85.528 Personal history of other malignant neoplasm of kidney; R00.2 Palpitations

== ENCOUNTER → 2024-03-25 | Outpatient (CLI) | payer OTHER ==
[2024-03-25 13:37] LABS: BLOOD UREA NITROGEN 15 MG/DL (9-23); CARBON DIOXIDE LEVEL 28 MMOL/L (20-31); CHLORIDE LEVEL 106 MMOL/L (98-107); CREATININE FOR GFR 0.69 MG/DL (0.55-1.30); GLOMERULAR FILTRATION RATE > 60.0 (>45); GLUCOSE, FASTING 107 MG/DL (74-106); SODIUM LEVEL 138 MMOL/L (136-145)
== END ==
LOC: M RAD 12:29
PROVIDERS: ATTEND Urology
DX: C64.2 Malignant neoplasm of left kidney, except renal pelvis (principal)

== ENCOUNTER → 2024-03-25 | Outpatient (CLI) | payer OTHER ==
[~2024-03-25] MED LIST changes: +ISOVUE-370 76% 100ML VIAL As Ordered ONE
== END ==
LOC: M RAD 12:33
PROVIDERS: ATTEND Urology
DX: C64.2 Malignant neoplasm of left kidney, except renal pelvis (principal); K57.90 Diverticulosis of intestine, part unspecified, without perforation or abscess without bleeding
CPT/HCPCS: 36415; 71046; 74170; 80048; Q9967

== ENCOUNTER → 2024-12-16 | Outpatient (REF) | payer OTHER ==
[~2024-12-16] MED LIST changes: -ISOVUE-370 76% 100ML VIAL As Ordered ONE
[2024-12-16 18:04] LABS: BASO % 0.5 % (0.0-1.0); EOS # 0.2 10^3/uL (0.0-0.5); EOS % 2.8 % (0.0-3.0); HEMATOCRIT 41.8 % (36.0-47.0); HEMOGLOBIN 13.9 g/dl (12.0-15.5); LYMPH # 1.8 10^3/uL (1.5-5.0); LYMPH % 31.2 % (24.0-44.0); MEAN CORPUSCULAR HEMOGLOBIN 31.3 pg (27.0-33.0); MEAN CORPUSCULAR HGB CONC 33.3 g/dl (32.0-36.5); MEAN CORPUSCULAR VOLUME 94.1 fl (80.0-96.0); MONO # 0.4 10^3/uL (0.0-0.8); MONO % 7.4 % (2.0-8.0); NEUTROPHILS # 3.3 10^3/uL (1.5-8.5); NEUTROPHILS % 57.7 % (36.0-66.0); PLATELET COUNT, AUTOMATED 258 10^3/uL (150-450); RED BLOOD COUNT 4.44 10^6/uL (4.00-5.40); WHITE BLOOD COUNT 5.7 10^3/uL (4.0-10.0)
[2024-12-16 18:21] LABS: ALBUMIN 4.2 G/DL (3.2-5.2)
[2024-12-16 18:28] LABS: PERCENT SATURATION 19.3 % (13.2-45.0)
[2024-12-16 18:31] LABS: FERRITIN 179.2 NG/ML (7.3-270.7)
== END ==
LOC: M LABDRAWC 17:19
PROVIDERS: ATTEND Orthopaedic Surgery
DX: Z01.812 Encounter for preprocedural laboratory examination (principal); M17.12 Unilateral primary osteoarthritis, left knee; D50.9 Iron deficiency anemia, unspecified

== ENCOUNTER → 2025-02-13 | Outpatient (CLI) | payer MEDICARE ==
[2025-02-13 11:57] LABS: CREATININE FOR GFR 0.67 MG/DL (0.55-1.30); GLOMERULAR FILTRATION RATE > 90.0 (>45)
== END ==
LOC: M LAB 10:24
PROVIDERS: ATTEND Nurse Practitioner Family
DX: H90.A32 Mixed conductive and sensorineural hearing loss, unilateral, left ear with restricted hearing on the contralateral side (principal)

== ENCOUNTER → 2025-03-13 | Outpatient (CLI) | payer MEDICARE ==
[~2025-03-13] MED LIST changes: +HYDR12.510 PO; -HYDR12CA PO; +PROHANCE 279.3MG/ML 15ML VIAL ONE
== END ==
LOC: M PLAIMG 13:20
PROVIDERS: ATTEND Otolaryngology
DX: H90.A32 Mixed conductive and sensorineural hearing loss, unilateral, left ear with restricted hearing on the contralateral side (principal); G93.89 Other specified disorders of brain
CPT/HCPCS: 70553; A9576